=== PATIENT | male | born 1995 | race African-American/Black ===

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

== ENCOUNTER 2017-03-13 18:03 | Emergency (ER) | payer OTHER ==
[~2017-03-13] VITALS: Ht 170.2 cm; Wt 120.0 kg
[2017-03-13 18:06] VITALS: TEMP 37; Ht 170.2 cm; Wt 120.0 kg
[2017-03-13] MEDS ORDERED: IBUP-1428 PO (18:31)
[2017-03-13] MEDS ORDERED: TRAM-10 PO (18:50)
[2017-03-13 19:02] VITALS: BP 127/79; PULSE 65; O2SAT 100
--- NOTE | 2017-03-14 14:23 | EMERGENCY ROOM VISIT NOTE ---
ED Visit Note First contact with patient: 18:22 Chief Complaint: My bottom wisdom teeth hurt on the right. History of Present Illness: Mr. Yang is a 21-year-old black male who ambulates into the ED accompanied by family members complaining of right mandibular dental pain. Patient reports he has been having right mandibular dental pain in the area of his wisdom teeth for the last week. He reports his pain has been constant and has been controlled with [id number] ibuprofen and acetaminophen. He reports he was seen by a dentist today and was referred to an oral surgeon for wisdom teeth extraction. He reports approximately 5 hours ago he had an increase in his pain. He describes his discomfort as a constant throbbing sensation over tooth 31. He rates his discomfort 6/10. His pain is nonradiating. His pain worsens with palpation and chilling. He has not identified any alleviating factors related to the pain. He reports he took ibuprofen at the onset of his pain without relief of his discomfort. He denies any associated symptoms including fevers, chills, sweats, skin eruptions, skin color changes, recent dental trauma, facial swelling, upper respiratory tract symptoms, sore throats. Review of Systems: As noted above in history of present illness. Past Medical History: Patient denies. Current Medications: Patient denies. Allergies to Medications: Patient denies. Social History: Patient is currently employed; he feels safe in his home environment; he denies tobacco and alcohol use. Physical Examination: Vital Signs: Date Time Temp Pulse Resp B/P (MAP) Pulse Ox O2 Delivery O2 Flow Rate FiO2 03/13/17 19:02 65 16 127/79 100 03/13/17 18:06 37.0 61 16 138/83 100 Room Air GENERAL: 21-year-old male in mild distress due to pain, nontoxic-appearing, afebrile and hemodynamically stable. NEUROLOGICAL: Awake, alert and oriented to person, place and time. Answering questions appropriately and following commands. SKIN: Warm, dry and pink. No soft tissue eruptions or trauma noted. HEENT: Atraumatic and normocephalic. No facial swelling or tenderness. Oral cavity is moist and pink. Airway is patent. Speech is normal. Uvula was midline and no abscesses are seen. Posterior pharyngeal's not erythematous or edematous. No gross dental diseases were noted. He does have some wear and tear over the crown indicating possible grinding. Tooth #30 does not show any care cavities or decay. The tooth does appear to be impacted and there is gingiva growing over the crown of the tooth. There is no local gingiva erythema or edema. No signs of abscess around the tooth or surrounding mandible. No submandibular or cervical lymphadenopathy. ED Course: Patient is assessed as noted above. Patient's medication list was reviewed. Patient was educated about today's findings and instructed on his treatment plan ; he verbalizes understanding and agreement with this plan. Clinical Impression: Dental pain. Disposition: Patient discharged home in stable condition; prior to departure he was reassessed and subjectively reported he was pain-free. Plan: Comfort measures were discussed with the patient including alternating all tree and ibuprofen every 3 hours, covering the involved tooth with dental wax, using a liquid or mechanical soft diet. Patient was encouraged to follow-up with the oral surgeon for wisdom teeth extraction. Patient is encouraged return ED for worsening/uncontrolled pain, facial swelling , fevers or any new/concerning symptoms.
== END 2017-03-13 19:08 | disposition home or self-care (01) ==
LOC: C.EDB 18:04 → C.EDD 19:08
DX: K08.89 Other specified disorders of teeth and supporting structures (principal)

== ENCOUNTER 2017-06-24 08:50 | Emergency (ER) | payer OTHER ==
[~2017-06-24] VITALS: Ht 175.3 cm; Wt 131.0 kg
[~2017-06-24 08:50] MED LIST: IBUP-1428 PO
[2017-06-24 08:53] VITALS: TEMP 36.7; Ht 175.3 cm; Wt 131.0 kg
[2017-06-24] MEDS ORDERED: IBUPROFEN 800 MG TAB PO STA (09:17)
--- NOTE | 2017-06-24 10:40 | DIAGNOSTIC IMAGING REPORT ---
SCROTAL ULTRASOUND CLINICAL HISTORY: Left testicular pain. COMPARISON STUDY: None. TECHNIQUE: Grayscale and color and duplex Doppler sonography of the scrotum was performed. FINDINGS: The right testis measures 4.4 x 2.7 x 2.5 cm and the left testis measures 4.8 x 2.7 x 3.2 cm. There is color flow within each testis. There is no testicular mass. There is no evidence for epididymitis. IMPRESSION: 1. Normal sonographic appearance of the testes. No evidence of testicular torsion. No testicular mass. 2. No evidence for epididymitis. Electronically signed by: Kike Cordero M.D. 06/24/2017 10:39 AM Dictated Date/Time: 06/24/2017 10:36 AM
[2017-06-24] MEDS ORDERED: IBUP-1451 PO (10:57)
--- NOTE | 2017-06-24 10:59 | EMERGENCY ROOM VISIT NOTE ---
History First contact with patient: 09:06 Chief Complaint: TESTICULAR PAIN Stated Complaint: PAIN IN GROIN AREA Nursing Triage Summary: left testicle pain. pain started last night History of Present Illness The patient is a 21 year old male who presents to the Emergency Room with complaints of left-sided testicular pain which began last night. The patient states he was lying still, relaxing, when he began noticing the pain. He states that lying on his back did not seem to help with the pain, but he didn't is lying on his side seemed to help. This morning, he felt the pain was improving, but then it began worsening. He states he was able to lay with a pillow under his leg, which also helped with this discomfort. The patient states he did apply ice, which didn't seem to help as well. The patient was not participate in any activity when the symptoms began, however his girlfriend apparently often jumps on top of him, and this was occurring prior to the incident. The patient states positioning seems to improve or worsen the symptoms. He did take 400 mg ibuprofen last night, did not notice significant improvement. The patient describes the pain as a throbbing sensation, rated 3/ 10. He states with certain sitting positions, the pain does seem to shift towards the right side. He denies any masses or abnormal sensations of the testes or scrotum. He denies any fever, nausea, vomiting, abdominal pain, penile discharge or drainage, urinary symptoms. The patient is sexually active , and his last STD testing was performed approximately one and half years ago. The patient has only had one female partner in that time. Review of Systems A complete 10 point review of systems was reviewed with the patient with pertinent positives and negatives as per history of present illness. All else were negative. Past Medical/Surgical History Dislocated knee Social History Smoking Status: Never Smoker Alcohol Use: none Drug Use: none Marital Status: single Housing Status: lives with significant other Occupation Status: employed Current/Historical Medications Scheduled PRN Ibuprofen Tab (Motrin), 800 MG PO Q8H PRN for Pain Allergies None Physical Exam Vital Signs Date Time Temp Pulse Resp B/P (MAP) Pulse Ox O2 Delivery O2 Flow Rate FiO2 06/24/17 11:25 84 18 125/76 98 06/24/17 08:53 36.7 68 18 132/90 96 Room Air Physical Exam VITAL SIGNS - Vital signs and nursing notes were reviewed. GENERAL - 21-year-old Male appearing his stated age who is in no acute distress. Communicates well with provider and answers questions appropriately. ABDOMEN - Abdominal contour normal. Abdomen soft, without pulsations or visible masses. BS normoactive all four quadrants. No tenderness to palpation appreciated on light or deep palpation. No palpable masses, hepatosplenomegaly, or ascites noted. GENITOURINARY - No male penile lesions or adhesions. No urethral discharge. Mild testicular tenderness to palpation appreciated on the superior aspect of the left testicle. No palpable masses. No blue dot sign. No hernia noted on examination. PSYCH - A&Ox3 and cooperates fully with examiner. Pt is very pleasant and interacts well with examiner. Medical Decision & Procedures ER Provider Diagnostic Interpretation: SCROTAL ULTRASOUND CLINICAL HISTORY: Left testicular pain. COMPARISON STUDY: None. TECHNIQUE: Grayscale and color and duplex Doppler sonography of the scrotum was performed. FINDINGS: The right testis measures 4.4 x 2.7 x 2.5 cm and the left testis measures 4.8 x 2.7 x 3.2 cm. There is color flow within each testis. There is no testicular mass. There is no evidence for epididymitis. IMPRESSION: 1. Normal sonographic appearance of the testes. No evidence of testicular torsion. No testicular mass. 2. No evidence for epididymitis. Electronically signed by: Kike Cordero M.D. 06/24/2017 10:39 AM Dictated Date/Time: 06/24/2017 10:36 AM Urinalysis without signs of infection. Medications Administered Medications (Trade) Dose Ordered Sig/Navneet Route Start Time Stop Time Status Last Admin Dose Admin Ibuprofen (Motrin Tab) 800 mg NOW STAT PO 06/24/17 09:17 06/24/17 09:18 DC 06/24/17 09:52 800 MG ED Course The patient was seen and evaluated as above. He was given 800mg ibuprofen PO. Ultrasound ordered and obtained. This did not reveal any suspicious abnormal findings. Urinalysis was obtained. Urine dipstick did not reveal any signs of infection. Discharge instructions were reviewed, the patient was discharged home in good condition. Medical Decision This is a 21-year-old male patient who presents today complaining of left-sided testicular pain. The patient denies any lesions, masses, or other abnormalities. He states the pain began spontaneously, however he had been roughhousing with his girlfriend prior to the pain beginning. The patient states the pain improves with certain positions. He states it also worsens with other physicians, and palpation. The patient denies any previous history of anything similar. He denies any urinary symptoms. I do suspect this could be an early epididymitis versus muscular pain. The patient's pain does respond to high-dose anti-inflammatories. He will be started on scheduled anti- inflammatories and encouraged to follow up outpatient with his PCP. Differential diagnosis includes epididymitis, testicular torsion, abscess, hernia, sprain, strain, STD, urinary tract infection, malignancy, mass, and others Impression Primary Impression: Testicular pain, left Departure Information Dispostion Home / Self-Care Condition GOOD Prescriptions Ibuprofen Tab (MOTRIN) 800 Mg Tab 800 MG PO Q8H Y for Pain, #90 TAB For Initial Treatment Prov: Kristin Joseph PA-C 06/24/17 Referrals Rhina Montanez M.D. (PCP) Patient Instructions ED Epididymitis, ED Testicular Pain [facility] [place], [place], [facility] Additional Instructions Emergency department today for testicular pain. Ultrasound was negative for acute process. I discussed suspect an early epididymitis. As discussed, management and his anti-inflammatories at this time. Ibuprofen(Motrin, Advil) may be used for fever or pain. Use 800mg every eight hours as needed. Take with food. Avoid using more than 2400mg in a 24 hour period. Do not use 2400mg per day for more than three consecutive days without physician direction. Prolonged inappropriate use can lead to stomach upset or ulcers. (AND/OR) Acetaminophen(Tylenol) may be used for fever or pain. Use 1000mg every six hours as needed. Avoid using more than 3000mg in a 24 hour period. Follow-up with your primary care provider in 2-3 days for recheck. Return to the emergency department for any worsening symptoms including pain, swelling, masses, or other concerning symptoms.
[2017-06-24 11:25] VITALS: BP 125/76; PULSE 84; O2SAT 98
== END 2017-06-24 11:22 | disposition home or self-care (01) ==
LOC: C.EDB 08:52 → C.EDA 11:22
DX: N50.812 Left testicular pain (principal)

== ENCOUNTER 2018-12-16 18:12 | Inpatient (IN) ==
[2018-12-16] MEDS ORDERED: KETOROLAC 30 MG/ML VIAL IV STA (18:40)
[2018-12-16] MEDS ORDERED: SODIUM CHLORIDE 0.9% 1000ML 1,000 ML IV SCH (18:45)
--- NOTE | 2018-12-16 19:02 | XRay Report ---
XR chest 1V portable CLINICAL HISTORY: Atypical chest pain COMPARISON STUDY: No previous studies for comparison. FINDINGS: The cardiac and mediastinal contours are normal. There is no evidence of focal pulmonary co nsolidation. There is no evidence of failure. No pleural effusions are visualized.[Slight interstitia l prominence, likely relates to technical factors given the patient's body habitus. There is no pneum othorax. IMPRESSION: No active disease in the chest. Electronically signed by: David Wilkerson M.D. 12/16/2018 7:00 PM
[2018-12-16 19:11] LABS: Basophils # (auto) 0.01 K/uL (0-0.2); Basophils % (auto) 0.2 %; Eosinophils # (auto) 0.05 K/uL (0-0.5); Eosinophils % (auto) 0.8 %; Hematocrit (blood only) 47.8 % (42-52); Immature Granulocytes # (auto) 0.02 K/uL (0.00-0.02); Immature Granulocytes % (auto) 0.3 %; Lymphocytes # (auto) 1.83 K/uL (1.2-3.4); Lymphocytes % (auto) 28.6 %; Mean Corpuscular Hgb Conc 35.6 g/dL (32-36); Mean Corpuscular Volume 85.2 fL (80-100); Mean Platelet Volume 9.8 fL (7.4-10.4); Monocytes # (auto) 0.42 K/uL (0.11-0.59); Monocytes % (auto) 6.6 %; Neutrophils # (auto) 4.06 K/uL (1.4-6.5); Neutrophils % (auto) 63.5 %; Platelet Count 191 K/uL (130-400); RDW Coefficient of Variation 12.8 % (11.5-14.5); RDW Standard Deviation 39.9 fL (36.4-46.3); Red Blood Count 5.61 M/uL (4.7-6.1); White Blood Count 6.39 K/uL (4.8-10.8)
[2018-12-16 19:17] LABS: Albumin Level 3.9 gm/dl (3.4-5.0); BUN Creatinine Ratio 12.3 (10-20); Calcium 9.6 mg/dl (8.5-10.1); Creatinine Clr Calc Pharmacy 118.2 ml/min; Est GFR (African American) 88.7; Est GFR (Non-African American) 76.6; Potassium 4.2 mmol/L (3.5-5.1)
[2018-12-16 19:25] LABS: Albumin Globulin Ratio 0.9 (0.9-2); Bilirubin,Total 0.5 mg/dl (0.2-1); Globulin 4.5 gm/dl (2.5-4.0); Total Protein 8.4 gm/dl (6.4-8.2); Troponin I 1.02 ng/ml (0-0.045)
[2018-12-16] MEDS ORDERED: MoRPHine SULFATE 4 MG/ML 1 ML CARP\\VIAL IV STA (19:38)
[2018-12-16] MEDS ORDERED: OPTIRAY 320 125ml IV PRN (19:41)
--- NOTE | 2018-12-16 19:51 | CT Scan Report ---
CT ANGIOGRAM OF THE CHEST CLINICAL HISTORY: Atypical chest pain. Possible pulmonary embolism. COMPARISON STUDY: Chest x-ray dated 12/16/2018 TECHNIQUE: Following the IV administration of 117 mL of Optiray-320, CT angiogram of the thorax was p erformed from the thoracic inlet to the lung bases utilizing the pulmonary embolus protocol. Images a re reviewed in the axial, sagittal, and coronal planes. IV contrast was administered without complica tion. MIP imaging was performed. A dose lowering technique was utilized adhering to the principles o f ALARA. CT DOSE: 863.31 mGy.cm FINDINGS: No pathologically enlarged axillary mediastinal or hilar lymph nodes were visualized. There was no evidence of thoracic aortic dilatation. There are extensive bilateral pulmonary artery filling defects consistent with acute pulmonary emboli sm with a large thrombus burden. There is evidence for mild right ventricular strain. There is dilata tion of the main pulmonary artery. No pleural effusions are visualized. There was no evidence of focal pulmonary consolidation. IMPRESSION: 1. Extensive acute bilateral pulmonary embolism. There is evidence for mild right ventricular strain. There is mild dilatation of the main pulmonary artery Electronically signed by: David Wilkerson M.D. 12/16/2018 7:50 PM
[2018-12-16] MEDS ORDERED: HEPARIN 25000 UNIT/500 ML D5W IV ONE (20:09)
[2018-12-16] MEDS ORDERED: HEPARIN SOD (PORCINE) 1000 UNIT/ML 10 ML VIAL ONE (20:09)
--- NOTE | 2018-12-16 20:56 | Emergency Department Note ---
Entered by Rosemary Talamantes acting as a scribe for Oumar Sams MD History of Present Illness General Chief complaint: Illness Time Seen by Provider: 12/16/18 18:22 Source: patient History of Present Illness Onset (ago): hour(s) (3.5) Location: head and chest Pain Consistency: + other (sudden) Maximum Pain Intensity: 6 Quality: + other (illness) Relieved By: + medication Associated symptoms: + chest pain, + headaches, + shortness of breath and + ot her (lightheaded, dizzy); no cough, no fever/chills and no nausea/vomiting The patient is a 23 male w/ no PMHx who presents to the ED w/ CC of sudden illness starting 3.5 hours ago. The patient states that earlier today he was leaving [facility] with his family and had been riding in one of the carts as he recently tore his ACL. He reports that when he went to stand up to get in to the car he started feeling lightheaded and dizzy. He reports that he thought maybe his sugars were low so he ate something sweet. He reports that it offered some relief. The patient states that by the time he got home, he started to have a headache. He reports that he tried to help make dinner and while doing so, he got chest pain in the middle of his chest. He reports that he then became lightheaded again and decided to sit down, but it all his symptoms stayed He reports that the pains were a sharp pain He notes that he tried taking a medication and it helped alleviate some of his symptoms, but he cant remember what it was. He notes that it made him intermittently short of breath. The patient notes that he is a smoker and drinks one in a while. The patient denies nausea, vomiting, fevers, chills, cough, recent surgeries, a history of heart or lung disease, a history of blood clots, and recent long trips. Home Medications Home Medications Medication Instructions Recorded Confirmed Type fexofenadine-pseudoephedrine 60 tab PO QAM 12/02/18 12/16/18 History [Kayleen-D 12 Hour] fluticasone propionate [Flonase 2 spray INTRANASAL DAILY PRN 12/02/18 12/16/18 History Allergy Relief] diclofenac sodium 75 mg PO BID 12/16/18 12/16/18 History omeprazole 20 mg PO DAILY PRN 12/16/18 12/16/18 History tramadol 50 mg PO Q8H PRN 12/16/18 12/16/18 History Allergies Allergy/AdvReac Type Severity Reaction Status Date / Time No Known Allergies Allergy Verified 12/16/18 19:24 Past Med/Surg History Medical History Testicular swelling No pertinent family history Surgical History No pertinent past surgical history Family History Other No pertinent family history Social History Preferred Language: [place] Communication Ability: Effective Visual Impairment: No Limitations Hearing Ability: Normal marital status: Single Current Living Situation: Family current occupational status: employed Feels Safe at Home: Yes Smoking Status: Current every day smoker Review of Systems See HPI for pertinent positives & negatives. and A total of 10 systems reviewed and were otherwise negative Physical Exam Vital Signs Vital Signs - 24 hr 12/16/18 18:20 12/16/18 18:32 12/16/18 18:37 Temperature 37.1 C Temperature Source Oral Sepsis Recent Fever Within 48 Hours No Sepsis Action Taken by Nursing No Action Required Pulse Rate 120 H 118 H 117 H Pulse Rate from SpO2 Sensor Respiratory Rate 37 H 20 22 Respiratory Effort / Characteristics Non-Labored Respiratory Depth Normal Blood Pressure 128/81 128/81 Blood Pressure Mean 96 96 Pulse Oximetry 96 Oxygen Delivery Method Room Air 12/16/18 18:40 12/16/18 18:43 12/16/18 18:50 Temperature Temperature Source Sepsis Recent Fever Within 48 Hours Sepsis Action Taken by Nursing Pulse Rate 115 H 110 H Pulse Rate from SpO2 Sensor Respiratory Rate 22 28 H Respiratory Effort / Characteristics Respiratory Depth Blood Pressure Blood Pressure Mean Pulse Oximetry 96 Oxygen Delivery Method Room Air 12/16/18 19:00 12/16/18 19:05 12/16/18 19:10 Temperature Temperature Source Sepsis Recent Fever Within 48 Hours Sepsis Action Taken by Nursing Pulse Rate 114 H 112 H 116 H Pulse Rate from SpO2 Sensor 128 H 119 H Respiratory Rate 24 22 23 Respiratory Effort / Characteristics Respiratory Depth Blood Pressure 154/105 H 152/102 H Blood Pressure Mean 121 118 Pulse Oximetry 98 99 Oxygen Delivery Method 12/16/18 19:20 12/16/18 19:30 12/16/18 19:53 Temperature Temperature Source Sepsis Recent Fever Within 48 Hours Sepsis Action Taken by Nursing Pulse Rate 112 H 115 H Pulse Rate from SpO2 Sensor 217 H 227 H Respiratory Rate 27 H 24 Respiratory Effort / Characteristics Respiratory Depth Blood Pressure 139/96 Blood Pressure Mean 110 Pulse Oximetry 98 95 Oxygen Delivery Method 12/16/18 20:00 12/16/18 20:10 12/16/18 20:20 Temperature Temperature Source Sepsis Recent Fever Within 48 Hours Sepsis Action Taken by Nursing Pulse Rate 115 H 116 H 112 H Pulse Rate from SpO2 Sensor 116 H 113 H 113 H Respiratory Rate 25 H 26 H 21 Respiratory Effort / Characteristics Respiratory Depth Blood Pressure 146/96 H Blood Pressure Mean 112 Pulse Oximetry 97 95 96 Oxygen Delivery Method 12/16/18 20:30 12/16/18 20:40 Temperature Temperature Source Sepsis Recent Fever Within 48 Hours Sepsis Action Taken by Nursing Pulse Rate 109 H 112 H Pulse Rate from SpO2 Sensor 110 H 114 H Respiratory Rate 14 31 H Respiratory Effort / Characteristics Respiratory Depth Blood Pressure 124/100 Blood Pressure Mean 108 Pulse Oximetry 95 93 Oxygen Delivery Method GENERAL: Mildly uncomfortable appearing, well nourished, non-toxic. EYE EXAM: Normal conjunctiva. PERRL, no anisocoria and EOM's grossly intact w/o pain. OROPHARYNX: Moist mucous membranes. Grossly normal dentition. NECK: Supple, no nuchal rigidity, no adenopathy, non-tender. No signs of meningismus. LUNGS: Clear to auscultation. Normal chest wall mechanics. HEART: Tachycardic, no MRG. ABDOMEN: Abdomen soft, non-tender, normo-active bowel sounds, no masses, no rebound or guarding. BACK: No CVA TTP. SKIN: No rashes and no bruising. UPPER EXTREMITIES: Upper extremities are grossly normal. LOWER EXTREMITIES: Left lower extremity pain and swelling. Left knee is in a brace. NEURO EXAM: A&O x3, cranial nerves II-XII grossly intact, normal speech, moves all 4 extremities on command w/o issue. Course 1834: Past medical records reviewed. The patient was evaluated in room B11B. A complete history and physical exam was performed. 2009: I reevaluated the patient and updated him on his test results. I discussed the treatment plan with him. He verbally agrees and understands. 2016: I discussed the patient's case with Bravo Buckley PA-C- Database Marketing Manager. He is going to touch base with his attending. 2020: I discussed the patient's case with Bravo Buckley PA-C- Database Marketing Manager. Dr. Yuen is willing to keep the patient. 2028: I discussed the patient's case with Dr. Job Levine. He will evaluate the patient for further management. Consultations Consultation #1: I discussed the patient's case with Bravo Buckley PA-C- Database Marketing Manager. He is going to touch base with his attending. Time: 20:16 Consultation #2: I discussed the patient's case with Bravo Buckley PA-C- Database Marketing Manager. Dr. Yuen is willing to keep the patient. Time: 20:20 Consultation #3: I discussed the patient's case with Dr. Job Levine. He will evaluate the patient for further management. Time: 20:29 Administered Medications Ioversol (Optiray 320 125ml) 117 ml IV ONCE PRN PRN Reason: Interaction Checking Stop: 12/20/18 19:40 Last Admin: 12/16/18 19:42 Dose: 117 ml Documented by: [id number] Discontinued Medications Heparin Sodium (Porcine) (Heparin Iv Bolus) Confirm Administered Dose 10,000 units .ROUTE .STK-MED ONE Stop: 12/16/18 20:10 Last Admin: 12/16/18 20:14 Dose: 5,000 units Documented by: [id number] Cosigned by: [id number] Heparin Sodium/Dextrose () 1 ea IV NOW STA; Protocol Stop: 12/16/18 19:52 Last Admin: 12/16/18 20:14 Dose: Not Given Documented by: [id number] Heparin Sodium/Dextrose (Heparin Sodium/Dextrose) Confirm Administered Dose 25,000 units IV .STK-MED ONE Stop: 12/16/18 20:10 Last Admin: 12/16/18 20:13 Dose: 1,700 units Documented by: [id number] Cosigned by: [id number] Sodium Chloride (Nss 1000ml) 1,000 mls @ 999 mls/hr IV .Q1H1M [place] Stop: 12/16/18 19:45 Last Infusion: 12/16/18 19:49 Dose: 0 mls/hr Documented by: [id number] Admin: 12/16/18 18:48 Dose: 999 mls/hr Documented by: [id number] Ketorolac Tromethamine (Toradol) 30 mg IV NOW STA Stop: 12/16/18 18:41 Last Admin: 12/16/18 18:48 Dose: 30 mg Documented by: [id number] Morphine Sulfate (Morphine Sulfate) 4 mg IV NOW STA Stop: 12/16/18 19:39 Last Admin: 12/16/18 19:52 Dose: 4 mg Documented by: [id number] Medical Decision Making Medical Records Attestation: I reviewed the patient's medical records. Home Medications Current Medication List: was personally reviewed by me Laboratory Data Attestation: I reviewed the patient's lab results. Result diagrams: 12/16/18 18:25 12/16/18 18:25 Lab Results 12/16/18 12/16/18 Range/Units 18:25 18:25 WBC 6.39 (4.8-10.8) K/uL RBC 5.61 (4.7-6.1) M/uL Hgb 17.0 (14.0-18.0) g/dL Hct 47.8 (42-52) % MCV 85.2 (80-100) fL MCH 30.3 (25-34) pg MCHC 35.6 (32-36) g/dL RDW Std Deviation 39.9 (36.4-46.3) fL RDW Coeff of [place] 12.8 (11.5-14.5) % Plt Count 191 (130-400) K/uL MPV 9.8 (7.4-10.4) fL Immature Gran % (Auto) 0.3 % Neut % (Auto) 63.5 % Lymph % (Auto) 28.6 % [place] % (Auto) 6.6 % Eos % (Auto) 0.8 % Baso % (Auto) 0.2 % Immature Gran # (Auto) 0.02 (0.00-0.02) K/uL Neut # (Auto) 4.06 (1.4-6.5) K/uL Lymph # (Auto) 1.83 (1.2-3.4) K/uL [place] # (Auto) 0.42 (0.11-0.59) K/uL Eos # (Auto) 0.05 (0-0.5) K/uL Baso # (Auto) 0.01 (0-0.2) K/uL Sodium 139 (136-145) mmol/L Potassium 4.2 (3.5-5.1) mmol/L Chloride 104 (98-107) mmol/L Carbon Dioxide 28 (21-32) mmol/L Anion Gap 7.0 (3-11) BUN 16 (7-18) mg/dl Creatinine 1.32 (0.6-1.4) mg/dl Est Cr Clr Drug Dosing 118.2 ml/min Est GFR ( Amer) 88.7 Est GFR (Non-Af Amer) 76.6 BUN/Creatinine Ratio 12.3 (10-20) Glucose 96 (70-99) mg/dl Calcium 9.6 (8.5-10.1) mg/dl Total Bilirubin 0.5 (0.2-1) mg/dl AST 21 (15-37) U/L ALT 38 (12-78) U/L Alkaline Phosphatase 64 (45-117) U/L Troponin I 1.020 H* (0-0.045) ng/ml Total Protein 8.4 H (6.4-8.2) gm/dl Albumin 3.9 (3.4-5.0) gm/dl Globulin 4.5 H (2.5-4.0) gm/dl Albumin/Globulin Ratio 0.9 (0.9-2) Lipase 90 (73-393) U/L Imaging Data Radiologist's Impression: Radiology results as stated below per my review and the radiologist's interpretation: XR chest 1V portable CLINICAL HISTORY: Atypical chest pain COMPARISON STUDY: No previous studies for comparison. FINDINGS: The cardiac and mediastinal contours are normal. There is no evidence of focal pulmonary consolidation. There is no evidence of failure. No pleural effusions are visualized.[Slight interstitial prominence, likely relates to technical factors given the patient's body habitus. There is no pneumothorax. IMPRESSION: No active disease in the chest. Electronically signed by: David Wilkerson M.D. 12/16/2018 7:[address] ANGIOGRAM OF THE CHEST CLINICAL HISTORY: Atypical chest pain. Possible pulmonary embolism. COMPARISON STUDY: Chest x-ray dated 12/16/2018 TECHNIQUE: Following the IV administration of 117 mL of Optiray-320, CT angiogram of the thorax was performed from the thoracic inlet to the lung bases utilizing the pulmonary embolus protocol. Images are reviewed in the axial, sagittal, and coronal planes. IV contrast was administered without complication. MIP imaging was performed. A dose lowering technique was utilized adhering to the principles of ALARA. CT DOSE: 863.31 mGy.cm FINDINGS: No pathologically enlarged axillary mediastinal or hilar lymph nodes were visualized. There was no evidence of thoracic aortic dilatation. There are extensive bilateral pulmonary artery filling defects consistent with acute pulmonary embolism with a large thrombus burden. There is evidence for mild right ventricular strain. There is dilatation of the main pulmonary artery. No pleural effusions are visualized. There was no evidence of focal pulmonary consolidation. IMPRESSION: 1. Extensive acute bilateral pulmonary embolism. There is evidence for mild ri ght ventricular strain. There is mild dilatation of the main pulmonary artery Electronically signed by: David Wilkerson M.D. 12/16/2018 7:50 PM ECG Data Attestation: I personally reviewed and interpreted this ECG as follows: Indication: chest pain Rate (beats per minute): 118 Rhythm: sinus tachycardia Findings: + other (normal intervals, normal axis) and + T-wave inversion (lead V3, 3, aVL) Comparison ECG Date: no prior available Blood Pressure Blood Pressure Findings: Elevated blood pressure Blood Pressure Disposition: further management by hospitalist RODOLFO La The patient is a 23 male w/ no PMHx who presents to the ED w/ CC of sudden illness starting 3.5 hours ago. Differential diagnoses includes but is not limited to acute coronary syndrome, myocardial infarction, pericarditis, pulmonary embolus, aortic dissection, pneumonia, pneumothorax, musculoskeletal, shingles, esophageal. Patient was seen and evaluated the bedside. Patient did complain of acute onset of chest pains. The patient does note that it was sharp and stabbing in nature. Patient is tachycardic and does have some left lower extremity swelling. Patient of note did have a recent ACL tear and has been using a walker to help with ambulation. The patient did have blood work completed along with a CT angios of the chest. Patient's white count and hemoglobin are normal. The patient has normal kidney function. The patient did have an elevated troponin. Patient CT does show bilateral extensive PEs. Patient was started on a heparin bolus and drip. This would qualify as a submassive PE given the elevation in troponin and associated right heart strain seen on his EKG as well as on CT. I did speak with the on-call hospitalist. He will be a dmitted to the medicine service. I did speak with the on-call retail administrative assistant Bravo Buckley who did speak with the attending physician Dr. Yuen who stated the patient would be appropriate for staying in [facility] at this time. I did convey all the findings and the fact that the patient will be admitted to the patient and the family were at the bedside. Patient was admitted to the medicine service. Impression & Plan Bilateral pulmonary embolism, Encounter for smoking cessation counseling, Chest pain Critical Care Time Critical Care Time: Yes Total Critical Care Time: 75 I have personally spent 75 minutes of critical care time in the direct management of this patient. This includes bedside care, interpretation of d iagnostic studies, and testing, discussion with consultants, patient, and family members, and other required patient management activities. This 75 minutes is in excess of all separately billable procedures. Discharge Plan Visit Data Chief Complaint: Illness ED Provider: Oumar Sams Discharge Problem: Bilateral pulmonary embolism, Encounter for smoking cessation counseling, Chest pain Patient Disposition: Being Evaluated by Hospitalist Forms Stand Alone Forms: My [facility] Prescriptions Prescriptions: No Action fexofenadine-pseudoephedrine [Kayleen-D 12 Hour] 60-120 mg Tablet Extended Release 12 Hr 60 tab PO QAM RF: 0 fluticasone propionate [Flonase Allergy Relief] 50 mcg/actuation [place],Suspension 2 spray intranasal DAILY PRN (Reason: Allergy Symptoms) RF: 0 tramadol 50 mg tablet 50 mg PO Q8H PRN (Reason: Pain) RF: 0 omeprazole 20 mg capsule,delayed release(DR/EC) 20 mg PO DAILY PRN (Reason: Acid Reflux) RF: 0 diclofenac sodium 75 mg tablet,delayed release (DR/EC) 75 mg PO BID RF: 0 Referrals Referrals: Price Breaux MD [Primary Care Provider] - Discharge Problem: Chest pain Qualifiers: Chest pain type: unspecified Qualified Code(s): R07.9 - Chest pain, unspecified The scribe's documentation has been prepared under my direction and personally reviewed by me in its entirety. I confirm that the note above accurately reflects all work, treatment, procedures, and medical decision making performed by me.
--- NOTE | 2018-12-16 21:34 | History & Physical Report ---
Date of Service December 16, 2018 Assessment & Plan (1) Bilateral pulmonary embolism: This is a 23yo M with a PMH of obesity, sleep apnea and recent left knee injury who presents with shortness of breath and dizziness since this morning and was found to have bilateral PEs with evidence of mild right heart strain. -Tachycardia at 120 and tachypneic at 37 initially but has improved. O2 saturation of 97% on room air -Chest CTA with extensive acute bilateral pulmonary embolism. There is evidence for mild right ventricular strain. There is mild dilatation of the main pulmonary artery -ED physician discussed with ICU due to evidence of heart strain. Patient is stable with HR 105, RR of 21 and 97% on room air. Will place in PCU but transfer to ICU if develops respiratory distress -Started in IV heparin. 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 Plan to return home once medically stable. Patient seen in collaboration with Dr. Ford. Please see addendum. History of Present Illness Chief Complaint: SOB, dizziness Primary Care Provider: Price Breaux MD This is a 23yo M with a PMH of obesity, sleep apnea and recent left knee injury who presents with shortness of breath and dizziness since yesterday. 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 Was evaluated in ED that night but L knee XR was normal. Instructed to use crutches and follow up with ortho in clinic. Has been significantly less active since injury and has required crutches to ambulate. Was doing errands earlier today when he became more short of breath with associated dizziness and pleuritic chest pain. Family brought him to ED for further evaluation. In ED, patient was found to have tachycardia at 120 and tachypneic at 37. Troponin elevated at 1.020. Chest CTA with extensive acute bilateral pulmonary embolism. There is evidence for mild right ventricular strain. There is mild dilatation of the main pulmonary artery. Denies any personal history of blood clots. Does note that mom developed a blood clot following a knee injury a few years ago. Smokes 1/4 ppd, drinks occasionally. No recent trips or surgeries. No IV drug use. Still having pleuritic chest pain and palpitations. Oxygen saturation 93% on room air. No headache, wheezing, nausea, vomiting, abdominal pain, dysuria, diarrhea or constipation. Allergies Allergy/AdvReac Type Severity Reaction Status Date / Time No Known Allergies Allergy Verified 12/16/18 19:24 Home Medications Home Medications Medication Instructions Recorded Confirmed Type fexofenadine-pseudoephedrine 60 tab PO QAM 12/02/18 12/16/18 History [Kayleen-D 12 Hour] fluticasone propionate [Flonase 2 spray INTRANASAL DAILY PRN 12/02/18 12/16/18 History Allergy Relief] diclofenac sodium 75 mg PO BID 12/16/18 12/16/18 History omeprazole 20 mg PO DAILY PRN 12/16/18 12/16/18 History tramadol 50 mg PO Q8H PRN 12/16/18 12/16/18 History Past Med/Surg History Medical History Obesity (Chronic) AKSHAT (obstructive sleep apnea) (Chronic) Allergic rhinitis (Chronic) GERD (gastroesophageal reflux disease) (Chronic) Tobacco use (Chronic) No pertinent family history (Inactive) Surgical History No history of previous surgery (Chronic) Family History Other Asthma Deep vein thrombosis Social History Preferred Language: [place] Communication Ability: Effective Visual Impairment: No Limitations Hearing Ability: Normal marital status: Single Current Living Situation: Family current occupational status: employed Feels Safe at Home: Yes Smoking Status: Current every day smoker Cigarettes Per Day: 5-10 Hx Alcohol Use: Yes Alcohol Intake Frequency: Weekly Review of Systems Review of Systems: At least ten systems reviewed and negative except as noted in the HPI. Physical Exam Physical Exam: General Appearance: WD/WN, pbese male, no apparent distress, resting comfortably Head: normocephalic, atraumatic Eyes: normal inspection, PERRL, EOMI ENT: hearing grossly normal, pharynx normal Neck: supple, no JVD, no adenopathy Respiratory/Chest: lungs clear to auscultation. No wheezes, rales or rhonci. No respiratory distress or accessory muscle use Cardiovascular: tachycardic, regular rhythm, no murmur, normal peripheral pulses Abdomen/GI: normal bowel sounds, soft, non-tender to palpation Extremities/Musculoskelatal: Left knee brace. No calf tenderness, normal c apillary refill, no pedal edema Neurologic/Psych: alert, normal mood/affect, oriented x 3 Skin: normal color, warm/dry Results & Data Vital Signs (Past 12 Hours) Vital Signs Temp Pulse Resp BP Pulse Ox 12/16/18 20:40 112 H 31 H 93 12/16/18 20:30 109 H 14 124/100 95 12/16/18 20:20 112 H 21 96 12/16/18 20:10 116 H 26 H 95 12/16/18 20:00 115 H 25 H 146/96 H 97 12/16/18 19:53 115 H 24 95 12/16/18 19:30 139/96 12/16/18 19:20 112 H 27 H 98 12/16/18 19:10 116 H 23 99 12/16/18 19:05 112 H 22 152/102 H 98 12/16/18 19:00 114 H 24 154/105 H 12/16/18 18:50 110 H 28 H 12/16/18 18:43 96 12/16/18 18:40 115 H 22 12/16/18 18:37 117 H 22 12/16/18 18:32 37.1 C 118 H 20 128/81 96 12/16/18 18:20 120 H 37 H 128/81 Laboratory Results Short CBC 12/16/18 12/16/18 Range/Units 18:25 18:25 WBC 6.39 (4.8-10.8) K/uL RBC 5.61 (4.7-6.1) M/uL Hgb 17.0 (14.0-18.0) g/dL Hct 47.8 (42-52) % MCV 85.2 (80-100) fL MCH 30.3 (25-34) pg MCHC 35.6 (32-36) g/dL RDW Std Deviation 39.9 (36.4-46.3) fL RDW Coeff of Elizabeth 12.8 (11.5-14.5) % Plt Count 191 (130-400) K/uL MPV 9.8 (7.4-10.4) fL Immature Gran % (Auto) 0.3 % Neut % (Auto) 63.5 % Lymph % (Auto) 28.6 % [place] % (Auto) 6.6 % Eos % (Auto) 0.8 % Baso % (Auto) 0.2 % Immature Gran # (Auto) 0.02 (0.00-0.02) K/uL Neut # (Auto) 4.06 (1.4-6.5) K/uL Lymph # (Auto) 1.83 (1.2-3.4) K/uL [place] # (Auto) 0.42 (0.11-0.59) K/uL Eos # (Auto) 0.05 (0-0.5) K/uL Baso # (Auto) 0.01 (0-0.2) K/uL Sodium 139 (136-145) mmol/L Potassium 4.2 (3.5-5.1) mmol/L Chloride 104 (98-107) mmol/L Carbon Dioxide 28 (21-32) mmol/L Anion Gap 7.0 (3-11) BUN 16 (7-18) mg/dl Creatinine 1.32 (0.6-1.4) mg/dl Est Cr Clr Drug Dosing 118.2 ml/min Est GFR ( Amer) 88.7 Est GFR (Non-Af Amer) 76.6 BUN/Creatinine Ratio 12.3 (10-20) Glucose 96 (70-99) mg/dl Calcium 9.6 (8.5-10.1) mg/dl Total Bilirubin 0.5 (0.2-1) mg/dl AST 21 (15-37) U/L ALT 38 (12-78) U/L Alkaline Phosphatase 64 (45-117) U/L Troponin I 1.020 H* (0-0.045) ng/ml Total Protein 8.4 H (6.4-8.2) gm/dl Albumin 3.9 (3.4-5.0) gm/dl Globulin 4.5 H (2.5-4.0) gm/dl Albumin/Globulin Ratio 0.9 (0.9-2) Lipase 90 (73-393) U/L BMP 12/16/18 18:25 Sodium 139 Potassium 4.2 Chloride 104 Carbon Dioxide 28 BUN 16 Creatinine 1.32 Glucose 96 Calcium 9.6 Cardiac Enzymes 12/16/18 Range/Units 18:25 Troponin I 1.020 H* (0-0.045) ng/ml Liver Function 12/16/18 Range/Units 18:25 Total Bilirubin 0.5 (0.2-1) mg/dl AST 21 (15-37) U/L ALT 38 (12-78) U/L Alkaline Phosphatase 64 (45-117) U/L Albumin 3.9 (3.4-5.0) gm/dl Diagnostic Findings CXR: IMPRESSION: No active disease in the chest. Chest CTA: IMPRESSION: 1. Extensive acute bilateral pulmonary embolism. There is evidence for mild right ventricular strain. There is mild dilatation of the main pulmonary artery Supervising Physician Co-Signing Physician Notes Patient is a 23-year-old male with history of obesity, sleep apnea(recently evaluated as outpatient), GERD who recently had left knee injury resulting in limited mobility secondary to leg pain presents with history of shortness of breath, dizziness and pleuritic chest pain which started today. Patient has been using clutches to ambulate secondary to recent left knee injury. Denies any recent travel, IV drug use. Also denies any history of clotting, bleeding problems, calf pain. Apparently patient's mother had knee 2 years ago and was also diagnosed to have DVT at the time. CTA is suggestive of acute bilateral extensive pulmonary embolism with mild right heart strain. Currently is saturating well on room air. Was found to be tachycardic and tachypneic while in ED. Patient is started on IV heparin while in ED. On exam patient is obese, normocephalic, atraumatic, lungs are clear to auscultation, S1-S2, no murmur,+ tachycardia, abdomen soft nontender, no pedal edema, grossly no focal neurological deficits, left knee in brace. Is admitted to telemetry floor for management of acute PE. Continue IV heparin. Needs hypercoagulability work-up as outpatient. Mild troponin elevation likely secondary to right heart strain. We will continue to trend troponin. Will check echo. Will hold home diclofenac sodium while on IV heparin. I personally reviewed the record. Patient is interviewed and examined at bedside. Patient's care is coordinated with Jonna Gerber PA-C. Please refer to the documentation above for details of patient's presentation and for discussion of other issues. (1) Contusion of knee Encounter type: initial encounter Laterality: left Qualified Code(s): S80.02XA - Contusion of left knee, initial encounter
[2018-12-16 22:19] LABS: Prothrombin Time 10.3 Seconds (9.0-12.0)
[2018-12-16] MEDS ORDERED: FEXOFENADINE 60MG/PSEUDOEPHEDRINE 120MG TAB PO PRN (22:42)
[2018-12-16] MEDS ORDERED: ONDANSETRON INJ 2 MG/ML 2 ML VIAL IV PRN (22:42)
[2018-12-16] MEDS ORDERED: PANTOprazole 40 MG TAB PO PRN (22:42)
[2018-12-16] MEDS ORDERED: TRAMADOL HCL 50 MG TABLET PO PRN (22:42)
[2018-12-16] MEDS ORDERED: ACETAMINOPHEN 325 MG TAB PO PRN (22:42)
[2018-12-16] MEDS ORDERED: CONSULT PHARMACY STA (22:42)
[2018-12-16] MEDS ORDERED: FLUTICASONE PROPIONATE NA SPR 16 GM BTL NAE PRN (22:42)
[2018-12-16] MEDS ORDERED: POLYETHYLENE (MIRALAX) 17 GM PACK PO PRN (22:42)
[2018-12-16] MEDS ORDERED: Heparin IV Standard *NO* Bolus IV ONE (23:00)
[2018-12-16] MEDS: HEPARIN SODIUM/DEXTROSE 25,000 UNITS/500 ML BAG IV SCH (23:03)
[2018-12-17 02:28] LABS: Hematocrit (blood only) 44.4 % (42-52); Hemoglobin 15.7 g/dL (14.0-18.0); Mean Corpuscular Hgb Conc 35.4 g/dL (32-36); Mean Corpuscular Volume 84.7 fL (80-100); Mean Platelet Volume 9.5 fL (7.4-10.4); Platelet Count 171 K/uL (130-400); RDW Coefficient of Variation 12.9 % (11.5-14.5); RDW Standard Deviation 39.3 fL (36.4-46.3); Red Blood Count 5.24 M/uL (4.7-6.1)
[2018-12-17 02:46] LABS: Calcium 8.8 mg/dl (8.5-10.1); Est GFR (African American) 93.9
[2018-12-17 02:53] LABS: Partial Thromboplastin Time 54.8 Seconds (21.0-31.0)
--- NOTE | 2018-12-17 10:10 | Hospitalist Progress Note ---
Date of Service December 17, 2018 Assessment & Plan (1) Bilateral pulmonary embolism: Left popliteal vein DVT Main risk factor: Poor mobility secondary to left knee injury Remains hemodynamically stable Tachycardia improved 95% O2 saturation on room air Feels better overall compared to yesterday, no shortness of breath today Still has some mild chest pain Echocardiogram: EF 50 to 55% Grade 1 diastolic dysfunction next right ventricular cavity is enlarged, ventricular systolic function is reduced, there are regional wall motion abnormalities Akinesis of the RV free wall normal apical motion artery pressure of 36 mmHg Discussed case with assistant production editor Dr. 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 Grimm Last visit was Friday, recommend 2-week follow-up to determine possible surgery -Pain is about the same as per patient -Continue to monitor closely Nonweightbearing on the left leg -Tramadol PRN -PT OT evaluation (4) AKSHAT (obstructive sleep apnea): Evaluated for AKSHAT but has not been given results yet -Oxygen HS Smoking Cessation counseling DVT Ppx: IV heparin Code status: FULL PCP: Saeid Dispo: Admitted to telemetry. Plan to return home once medically stable. Case and plan of care discussed with patient in detail at length, he is comfortable and agreeable plan of care Subjective ff up acute pulmonary embolism Seen resting in bed, comfortable, not in distress, pleasant Speaks in sentences with no effort Reports central chest pain, sharp, constant, persistent, mild Denies active shortness of breath Has headache, dizziness No bleeding Left knee pain well controlled, no change since last week Reports left leg swelling is actually less today Denies other symptoms Review of Systems Review of Systems: All systems reviewed & are unremarkable except as noted in HPI & below Physical Exam Physical Exam: General- oriented x 3, not in distress, speaks in sentences with no effort or accessory muscle use Eyes- anicteric Neck- no JVD Lungs- clear breath sounds bilaterally, no rales/wheezes Heart- normal rate, regular rhythm; no murmurs Abdomen- normal bowel sounds, nondistended, soft, nontender Extremities- Left lower extremity: Mild knee swelling, mild left lower leg edema, no warmth/tendernesserythema Right lower extremity: Essentially normal Neuro- alert, oriented x 3; no gross focal neurologic deficits Skin- warm & dry Results & Data Vital Signs (Past 12 Hours) Vital Signs Temp Pulse Pulse Pulse Resp BP Pulse Ox 12/17/18 07:45 36.9 C 101 H 20 102/83 95 12/17/18 04:16 36.9 C 90 23 120/81 100 12/17/18 00:04 36.8 C 105 H 22 111/78 97 12/16/18 23:44 112 H 12/16/18 22:39 36.9 C 108 H 18 141/89 H 94 (1) Contusion of knee Encounter type: initial encounter Laterality: left Qualified Code(s): S80.02XA - Contusion of left knee, initial encounter
[2018-12-17] MEDS: HEPARIN SODIUM/DEXTROSE 25,000 UNITS/500 ML BAG IV SCH (11:25)
--- NOTE | 2018-12-17 12:45 | Pulmonary Consultation ---
Date of Consultation December 17, 2018 Assessment & Plan (1) Bilateral pulmonary embolism: bilateral pulmonary embolism. may be related to recent knee injury but would recommend further workup for hypercoagulable state as outpatient. treatment length may be difficult because if do not call the knee injury the inciting event may need lifetime treatment. for now would treat for minimum of 9 months and reevaluate continue heparin for now. can switch to DOAC tomorrow if stable. likely apixab an with obesity RV strain due to PE. he is HD stable. he will need repeat echo in 3 months to document resolution of RV strain smoking -discussed smoking cessation AKSHAT - continue outpatient workup and treatment if needed History of Present Illness Attending Physician: Ki Murillo MD History of Present Illness 23 y/o male with obesity and AKSHAT who presents with chest pain, shortness of breath, lightheadedness and dizzyness which started all of a sudden yesterday. 2 weeks ago he had a knee injury and therefore he has not been as mobile. He felt lightheaded and dizzy when he stood up then he started having chest pain. He says that he feels about the same since being in hospital. He has no history of clottig or bleeding disorders but his mother had DVT after knee injury. no long car rides or plane trips. He was found to have bilateral PE with RV strain and was started on heparin Allergies Allergy/AdvReac Type Severity Reaction Status Date / Time No Known Allergies Allergy Verified 12/16/18 19:24 Home Medications Home Medications Medication Instructions Recorded Confirmed Type fexofenadine-pseudoephedrine 60 tab PO QAM 12/02/18 12/16/18 History [Kayleen-D 12 Hour] fluticasone propionate [Flonase 2 spray INTRANASAL DAILY PRN 12/02/18 12/16/18 History Allergy Relief] diclofenac sodium 75 mg PO BID 12/16/18 12/16/18 History omeprazole 20 mg PO DAILY PRN 12/16/18 12/16/18 History tramadol 50 mg PO Q8H PRN 12/16/18 12/16/18 History Patient History Medical History Obesity (Chronic) AKSHAT (obstructive sleep apnea) (Chronic) Allergic rhinitis (Chronic) GERD (gastroesophageal reflux disease) (Chronic) Tobacco use (Chronic) No pertinent family history (Inactive) Surgical History No history of previous surgery (Chronic) Family History Other Asthma Deep vein thrombosis Social History Preferred Language: [place]i Communication Ability: Effective Visual Impairment: No Limitations Hearing Ability: Normal Beliefs That Will Affect Care: None marital status: Single Current Living Situation: Family Current Living Situation Comment: with [employer] current occupational status: employed Other Information That Helps Us Care for You: No Feels Safe at Home: Yes Safety Concerns: Feels Safe At This Time Smoking Status: Current every day smoker Tobacco Type: cigarettes Cigarettes Per Day: 3 Do You Dip or Chew Tobacco: No Second Hand Exposure: No Hx Alcohol Use: No Hx Substance Use: No Review of Systems 2 Review of Systems: Constitutional: no fevers no chills no weight loss Eyes: no blurry or double vision EENT: no sore throat, no congestion Respiratory: no cough + shortness of breath Cardiovascular: + chest pain no palpitations GI: no abdominal pain, no nausea, no vomiting, no diarrhea, no constipation Gu: no dysuria, no frequency MSK: no joint pain, no muscle aches Skin: no rash Neuro: no headache, + dizziness, no focal weakness Endocrine: no heat or cold intolerance heme: no easy bruising, no lymphadenopathy Psych: no depression, no anxiety Physical Exam Physical Exam: Constitutional: Comfortable NAD HEENT: normocephalic atraumatic. MMM. no cervical lymphadenopathy CV: RRR nl s1,s2 no murmurs rubs or gallops Lungs: clear to auscultation bilaterally. no accessory muscle use Abd: soft nontender nondistended. normal bowel sounds Ext: no edema. no cyanosis, no clubbing Skin: warm dry Neuro: alert and oriented. moving all extremities Psych: normal mood and affect Results & Data Vital Signs (Past 12 Hours) Vital Signs Temp Pulse Pulse Resp BP Pulse Ox 12/17/18 11:42 96 H 20 138/87 95 12/17/18 11:41 39.2 C H 12/17/18 10:17 92 H 12/17/18 07:45 36.9 C 101 H 20 102/83 95 12/17/18 04:16 36.9 C 90 23 120/81 100 Laboratory Results Laboratory Results - last 24 hr 12/16/18 12/16/18 12/16/18 18:25 18:25 18:25 WBC 6.39 RBC 5.61 Hgb 17.0 Hct 47.8 MCV 85.2 MCH 30.3 MCHC 35.6 RDW Std Deviation 39.9 RDW Coeff of Elizabeth 12.8 Plt Count 191 MPV 9.8 Immature Gran % (Auto) 0.3 Neut % (Auto) 63.5 Lymph % (Auto) 28.6 [place] % (Auto) 6.6 Eos % (Auto) 0.8 Baso % (Auto) 0.2 Immature Gran # (Auto) 0.02 Neut # (Auto) 4.06 Lymph # (Auto) 1.83 [place] # (Auto) 0.42 Eos # (Auto) 0.05 Baso # (Auto) 0.01 PT 10.3 INR 1.0 APTT PTT Ratio Sodium 139 Potassium 4.2 Chloride 104 Carbon Dioxide 28 Anion Gap 7.0 BUN 16 Creatinine 1.32 Est Cr Clr Drug Dosing 118.2 Est GFR ( Amer) 88.7 Est GFR (Non-Af Amer) 76.6 BUN/Creatinine Ratio 12.3 Glucose 96 Calcium 9.6 Total Bilirubin 0.5 AST 21 ALT 38 Alkaline Phosphatase 64 Troponin I 1.020 H* Total Protein 8.4 H Albumin 3.9 Globulin 4.5 H Albumin/Globulin Ratio 0.9 Lipase 90 12/17/18 12/17/18 12/17/18 00:39 02:11 02:11 WBC 8.80 RBC 5.24 Hgb 15.7 Hct 44.4 MCV 84.7 MCH 30.0 MCHC 35.4 RDW Std Deviation 39.3 RDW Coeff of Elizabeth 12.9 Plt Count 171 MPV 9.5 Immature Gran % (Auto) Neut % (Auto) Lymph % (Auto) [place] % (Auto) Eos % (Auto) Baso % (Auto) Immature Gran # (Auto) Neut # (Auto) Lymph # (Auto) [place] # (Auto) Eos # (Auto) Baso # (Auto) PT INR APTT 54.8 H* PTT Ratio 2.0 Sodium Potassium Chloride Carbon Dioxide Anion Gap BUN Creatinine Est Cr Clr Drug Dosing Est GFR ( Amer) Est GFR (Non-Af Amer) BUN/Creatinine Ratio Glucose Calcium Total Bilirubin AST ALT Alkaline Phosphatase Troponin I 0.803 H* Total Protein Albumin Globulin Albumin/Globulin Ratio Lipase 12/17/18 12/17/18 02:11 08:18 WBC RBC Hgb Hct MCV MCH MCHC RDW Std Deviation RDW Coeff of Elizabeth Plt Count MPV Immature Gran % (Auto) Neut % (Auto) Lymph % (Auto) [place] % (Auto) Eos % (Auto) Baso % (Auto) Immature Gran # (Auto) Neut # (Auto) Lymph # (Auto) [place] # (Auto) Eos # (Auto) Baso # (Auto) PT INR APTT PTT Ratio Sodium 139 Potassium 4.0 Chloride 107 Carbon Dioxide 24 Anion Gap 8.0 BUN 14 Creatinine 1.26 Est Cr Clr Drug Dosing 124.0 Est GFR ( Amer) 93.9 Est GFR (Non-Af Amer) 81.0 BUN/Creatinine Ratio 11.0 Glucose 110 H Calcium 8.8 Total Bilirubin AST ALT Alkaline Phosphatase Troponin I 0.400 H* Total Protein Albumin Globulin Albumin/Globulin Ratio Lipase Diagnostic Findings CT ANGIOGRAM OF THE CHEST CLINICAL HISTORY: Atypical chest pain. Possible pulmonary embolism. COMPARISON STUDY: Chest x-ray dated 12/16/2018 TECHNIQUE: Following the IV administration of 117 mL of Optiray-320, CT angiogram of the thorax was performed from the thoracic inlet to the lung bases utilizing the pulmonary embolus protocol. Images are reviewed in the axial, sagittal, and coronal planes. IV contrast was administered without complication. MIP imaging was performed. A dose lowering technique was utilized adhering to the principles of ALARA. CT DOSE: 863.31 mGy.cm FINDINGS: No pathologically enlarged axillary mediastinal or hilar lymph nodes were visualized. There was no evidence of thoracic aortic dilatation. There are extensive bilateral pulmonary artery filling defects consistent with acute pulmonary embolism with a large thrombus burden. There is evidence for mild right ventricular strain. There is dilatation of the main pulmonary artery. No pleural effusions are visualized. There was no evidence of focal pulmonary consolidation. IMPRESSION: 1. Extensive acute bilateral pulmonary embolism. There is evidence for mild right ventricular strain. There is mild dilatation of the main pulmonary artery Electronically signed by: David Wilkerson M.D. 12/16/2018 7:50 PM LEFT LOWER EXTREMITY VENOUS DOPPLER CLINICAL HISTORY: LEFT CALF PAIN, SWELLING COMPARISON STUDY: No previous studies for comparison. TECHNIQUE: Sonography of the deep venous system of the left lower extremity was performed. Compression and augmentation were evaluated. FINDINGS: The left common femoral, superficial femoral and popliteal veins were compressible. Augmentation was normal. Flow was shown within the deep calf vessels. IMPRESSION: No evidence of deep venous thrombus within the left lower extremity. Electronically signed by: Kike Cordero M.D. 12/11/2018 1:42 PM
--- NOTE | 2018-12-17 13:57 | Ultrasound Report ---
US venous doppler LE LT HISTORY: 23 years-old Male r/o dvt acute pain and swelling of the left lower extremity COMPARISON: Duplex venous Doppler study 12/11/2018 TECHNIQUE: Multiple real time sonographic images of the left lower extremity deep venous structures w ere obtained assessing grayscale appearance and color flow FINDINGS: Patent common femoral, profunda femoris and superficial femoral veins. Nonocclusive thrombus noted ab out the mid aspect of the popliteal vein, new from comparison. The deep veins of the calf appear sheffield nt and unremarkable. IMPRESSION: Nonocclusive deep venous thrombosis noted about the mid popliteal vein, new from 9. The above report was generated using voice recognition software. It may contain grammatical, syntax o r spelling errors. Electronically signed by: Elkin Loyola M.D. 12/17/2018 1:56 PM
[2018-12-18] MEDS: HEPARIN SODIUM/DEXTROSE 25,000 UNITS/500 ML BAG IV SCH ×2 (00:47→14:30)
[2018-12-18 07:21] LABS: Hematocrit (blood only) 44.3 % (42-52); Hemoglobin 15.6 g/dL (14.0-18.0); Mean Corpuscular Hgb Conc 35.2 g/dL (32-36); Mean Corpuscular Volume 84.4 fL (80-100); Mean Platelet Volume 9.6 fL (7.4-10.4); Platelet Count 152 K/uL (130-400); RDW Coefficient of Variation 12.6 % (11.5-14.5); RDW Standard Deviation 37.8 fL (36.4-46.3); Red Blood Count 5.25 M/uL (4.7-6.1); White Blood Count 6.65 K/uL (4.8-10.8)
[2018-12-18 07:54] LABS: BUN Creatinine Ratio 11.5 (10-20); Calcium 9.3 mg/dl (8.5-10.1); Creatinine Clr Calc Pharmacy 118.5 ml/min; Est GFR (African American) 86.4; Est GFR (Non-African American) 74.5; Potassium 4.4 mmol/L (3.5-5.1)
[2018-12-18 08:06] LABS: Partial Thromboplastin Time 54.1 Seconds (21.0-31.0)
[2018-12-18 12:14] LABS: INR 1.1 (0.9-1.1); Prothrombin Time 10.9 Seconds (9.0-12.0)
--- NOTE | 2018-12-18 12:43 | Pulmonology Progress Note ---
Date of Service December 18, 2018 Assessment & Plan (1) Bilateral pulmonary embolism: bilateral pulmonary embolism. may be related to recent knee injury but would recommend further workup for hypercoagulable state as outpatient. treatment length may be difficult because if do not call the knee injury the inciting event may need lifetime treatment. for now would treat for minimum of 9 months and reevaluate can switch to oral anticoagulation apixiban vs warfarin RV strain due to PE. echo with RV dysfunction. he is HD stable. I expect this to improve over time. he will need repeat echo in 3 months to document resolution of RV strain smoking - smoking cessation AKSHAT - continue outpatient workup and treatment if needed Subjective breathing better no sob or dizzyness with ambulation Physical Exam Physical Exam: Constitutional: Comfortable NAD HEENT: normocephalic atraumatic. MMM CV: RRR nl s1,s2 no murmurs rubs or gallops Lungs: clear to auscultation bilaterally. no accessory muscle use Abd: soft nontender nondistended. normal bowel sounds Ext: no edema. no cyanosis, no clubbing Skin: warm dry Neuro: alert and oriented. moving all extremities Psych: normal mood and affect Results & Data Vital Signs (Past 12 Hours) Vital Signs Temp Pulse Pulse Pulse Resp BP Pulse Ox 12/18/18 11:02 37.1 C 70 20 127/86 97 12/18/18 07:37 88 12/18/18 07:09 37.1 C 78 19 146/83 H 96 12/18/18 04:00 37.1 C 77 18 118/81 97 Laboratory Results Laboratory Results - last 24 hr 12/18/18 12/18/18 12/18/18 07:05 07:05 07:05 WBC 6.65 RBC 5.25 Hgb 15.6 Hct 44.3 MCV 84.4 MCH 29.7 MCHC 35.2 RDW Std Deviation 37.8 RDW Coeff of Elizabeth 12.6 Plt Count 152 MPV 9.6 PT INR APTT 54.1 H* PTT Ratio 2.0 Sodium 139 Potassium 4.4 Chloride 102 Carbon Dioxide 29 Anion Gap 8.0 BUN 16 Creatinine 1.35 Est Cr Clr Drug Dosing 118.5 Est GFR ( Amer) 86.4 Est GFR (Non-Af Amer) 74.5 BUN/Creatinine Ratio 11.5 Glucose 99 Calcium 9.3 12/18/18 07:05 WBC RBC Hgb Hct MCV MCH MCHC RDW Std Deviation RDW Coeff of Elizabeth Plt Count MPV PT 10.9 INR 1.1 APTT PTT Ratio Sodium Potassium Chloride Carbon Dioxide Anion Gap BUN Creatinine Est Cr Clr Drug Dosing Est GFR ( Amer) Est GFR (Non-Af Amer) BUN/Creatinine Ratio Glucose Calcium
[2018-12-18] MEDS ORDERED: WARFARIN SOD 5 MG TAB PO SCH (16:00)
--- NOTE | 2018-12-18 16:21 | Hospitalist Progress Note ---
Date of Service December 18, 2018 Assessment & Plan (1) Bilateral pulmonary embolism: Left popliteal vein DVT Main risk factor: Poor mobility secondary to left knee injury Echocardiogram: EF 50 to 55% Grade 1 diastolic dysfunction next right ventricular cavity is enlarged, ventricular systolic function is reduced, there are regional wall motion abnormalities Akinesis of the RV free wall normal apical motion artery pressure of 36 mmHg Discussed case with credit union manager Dr. 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 Grimm Last visit was Friday, recommend 2-week follow-up to determine possible surgery -No worsening of knee pain or leg pain, Pain well controlled at this point -Continue to monitor closely Nonweightbearing on the left leg -Tramadol PRN -PT OT evaluation (4) AKSHAT (obstructive sleep apnea): Evaluated for AKSHAT but has not been given results yet -Oxygen HS Smoking Cessation counseling DVT Ppx: IV heparin and Coumadin Code status: FULL PCP: Saeid Dispo: Admitted to telemetry. Plan to return home once medically stable. Case and plan of care discussed with patient in detail at length, he is comfortable and agreeable plan of care Subjective Follow-up for acute pulmonary embolism Seen resting in bed, comfortable, nondistressed Not on oxygen supplementation Pleasant, conversant States mid sternal chest pain is improving, breathing also improving Denies dizziness, palpitations Able to stand and ambulate to the bathroom with no problems No bleeding Denies other symptoms Review of Systems Review of Systems: All systems reviewed & are unremarkable except as noted in HPI & below Physical Exam Physical Exam: General- oriented x 3, not in distress, speaks in sentences with no effort or accessory muscle use Eyes- anicteric Neck- no JVD Lungs- clear breath sounds bilaterally, no crackles, no wheezing Heart- normal rate, regular rhythm; no murmurs Abdomen- normal bowel sounds, nondistended, soft, nontender Extremities- no pretibial edema, no calf tenderness Left knee: Mild edema, no warmth or tenderness,; also has mild edema on the left leg, but no erythema warmth or tenderness Neuro- alert, oriented x 3; no gross focal neurologic deficits Skin- warm & dry Results & Data Vital Signs (Past 12 Hours) Vital Signs Temp Pulse Pulse Resp BP Pulse Ox 12/18/18 15:28 37.0 C 71 19 130/84 97 12/18/18 15:06 77 12/18/18 11:02 37.1 C 70 20 127/86 97 12/18/18 07:37 88 12/18/18 07:09 37.1 C 78 19 146/83 H 96 Laboratory Results Laboratory Results - last 24 hr 12/18/18 12/18/18 12/18/18 07:05 07:05 07:05 WBC 6.65 RBC 5.25 Hgb 15.6 Hct 44.3 MCV 84.4 MCH 29.7 MCHC 35.2 RDW Std Deviation 37.8 RDW Coeff of Elizabeth 12.6 Plt Count 152 MPV 9.6 PT INR APTT 54.1 H* PTT Ratio 2.0 Sodium 139 Potassium 4.4 Chloride 102 Carbon Dioxide 29 Anion Gap 8.0 BUN 16 Creatinine 1.35 Est Cr Clr Drug Dosing 118.5 Est GFR ( Amer) 86.4 Est GFR (Non-Af Amer) 74.5 BUN/Creatinine Ratio 11.5 Glucose 99 Calcium 9.3 12/18/18 07:05 WBC RBC Hgb Hct MCV MCH MCHC RDW Std Deviation RDW Coeff of Elizabeth Plt Count MPV PT 10.9 INR 1.1 APTT PTT Ratio Sodium Potassium Chloride Carbon Dioxide Anion Gap BUN Creatinine Est Cr Clr Drug Dosing Est GFR ( Amer) Est GFR (Non-Af Amer) BUN/Creatinine Ratio Glucose Calcium (1) Contusion of knee Encounter type: initial encounter Laterality: left Qualified Code(s): S80.02XA - Contusion of left knee, initial encounter
[2018-12-19] MEDS: HEPARIN SODIUM/DEXTROSE 25,000 UNITS/500 ML BAG IV SCH ×2 (05:18→19:08)
[2018-12-19 06:55] LABS: Basophils # (auto) 0.02 K/uL (0-0.2); Basophils % (auto) 0.3 %; Eosinophils # (auto) 0.11 K/uL (0-0.5); Eosinophils % (auto) 1.8 %; Hematocrit (blood only) 44.7 % (42-52); Hemoglobin 15.9 g/dL (14.0-18.0); Immature Granulocytes # (auto) 0.03 K/uL (0.00-0.02); Immature Granulocytes % (auto) 0.5 %; Lymphocytes # (auto) 2.38 K/uL (1.2-3.4); Mean Corpuscular Hgb Conc 35.6 g/dL (32-36); Mean Corpuscular Volume 83.9 fL (80-100); Mean Platelet Volume 10.3 fL (7.4-10.4); Monocytes # (auto) 0.55 K/uL (0.11-0.59); Neutrophils # (auto) 3.01 K/uL (1.4-6.5); Neutrophils % (auto) 49.4 %; Platelet Count 152 K/uL (130-400); RDW Coefficient of Variation 12.5 % (11.5-14.5); RDW Standard Deviation 37.6 fL (36.4-46.3); Red Blood Count 5.33 M/uL (4.7-6.1)
[2018-12-19 07:09] LABS: Prothrombin Time 10.6 Seconds (9.0-12.0)
[2018-12-19 07:25] LABS: BUN Creatinine Ratio 10.4 (10-20); Calcium 9.3 mg/dl (8.5-10.1); Creatinine Clr Calc Pharmacy 128.2 ml/min; Est GFR (African American) 98.6; Est GFR (Non-African American) 85.1
[2018-12-19 08:23] LABS: Partial Thromboplastin Ratio 1.8
[2018-12-19] MEDS ORDERED: WARFARIN SOD 7.5 MG TAB PO SCH (16:00)
--- NOTE | 2018-12-19 17:09 | Hospitalist Progress Note ---
Date of Service December 19, 2018 Assessment & Plan (1) Bilateral pulmonary embolism: Left popliteal vein DVT Main risk factor: Poor mobility secondary to left knee injury Echocardiogram: EF 50 to 55% Grade 1 diastolic dysfunction next right ventricular cavity is enlarged, ventricular systolic function is reduced, there are regional wall motion abnormalities Akinesis of the RV free wall normal apical motion artery pressure of 36 mmHg Discussed case with artist relationship manager Dr. 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 Grimm Last visit was Friday, recommend 2-week follow-up to determine possible surgery -No worsening of knee pain or leg pain, Pain well controlled at this point -Continue to monitor closely Nonweightbearing on the left leg -Tramadol PRN -PT OT evaluation (4) AKSHAT (obstructive sleep apnea): Evaluated for AKSHAT but has not been given results yet -Oxygen HS Smoking Cessation counseling DVT Ppx: IV heparin and Coumadin Code status: FULL PCP: Saeid Dispo: Admitted to telemetry. Plan to return home once medically stable. Case and plan of care discussed with patient and his family at bedside in detail at length, they are comfortable and agreeable plan of care Subjective Follow-up for acute pulmonary embolism, DVT Seen with family at the bedside Resting in bed, comfortable, in good spirits States he actually feels much better today Chest pain resolved, pain continues to improve Denies hemoptysis or any other signs of bleeding Reports left leg swelling also significantly improved, pain level also improving No other symptoms Review of Systems Review of Systems: All systems reviewed & are unremarkable except as noted in HPI & below Physical Exam Physical Exam: General- oriented x 3, not in distress, speaks in sentences with no effort or accessory muscle use Eyes- anicteric Neck- no JVD Lungs- clear BS, no crackles, no wheezing bilaterally Heart- normal rate, regular rhythm; no murmurs Abdomen- normal bowel sounds, nondistended, soft, nontender Extremities- no pretibial edema, no calf tenderness Left lower extremity: Less edema, no tenderness/erythema/warmth Neuro- alert, oriented x 3; no gross focal neurologic deficits Skin- warm & dry Results & Data Vital Signs (Past 12 Hours) Vital Signs Temp Pulse Pulse Resp BP Pulse Ox 12/19/18 15:36 37.1 C 87 16 138/82 96 12/19/18 11:18 37.2 C 70 19 134/75 97 12/19/18 07:28 69 12/19/18 07:00 37.1 C 76 18 135/82 96 Laboratory Results Laboratory Results - last 24 hr 12/19/18 12/19/18 12/19/18 06:40 06:40 06:40 WBC 6.10 RBC 5.33 Hgb 15.9 Hct 44.7 MCV 83.9 MCH 29.8 MCHC 35.6 RDW Std Deviation 37.6 RDW Coeff of Elizabeth 12.5 Plt Count 152 MPV 10.3 Immature Gran % (Auto) 0.5 Neut % (Auto) 49.4 Lymph % (Auto) 39.0 [place] % (Auto) 9.0 Eos % (Auto) 1.8 Baso % (Auto) 0.3 Immature Gran # (Auto) 0.03 H Neut # (Auto) 3.01 Lymph # (Auto) 2.38 [place] # (Auto) 0.55 Eos # (Auto) 0.11 Baso # (Auto) 0.02 PT 10.6 INR 1.0 APTT PTT Ratio Sodium 135 L Potassium 4.0 Chloride 102 Carbon Dioxide 25 Anion Gap 8.0 BUN 13 Creatinine 1.21 Est Cr Clr Drug Dosing 128.2 Est GFR ( Amer) 98.6 Est GFR (Non-Af Amer) 85.1 BUN/Creatinine Ratio 10.4 Glucose 101 H Calcium 9.3 12/19/18 07:48 WBC RBC Hgb Hct MCV MCH MCHC RDW Std Deviation RDW Coeff of Elizabeth Plt Count MPV Immature Gran % (Auto) Neut % (Auto) Lymph % (Auto) [place] % (Auto) Eos % (Auto) Baso % (Auto) Immature Gran # (Auto) Neut # (Auto) Lymph # (Auto) [place] # (Auto) Eos # (Auto) Baso # (Auto) PT INR APTT 49.0 H* PTT Ratio 1.8 Sodium Potassium Chloride Carbon Dioxide Anion Gap BUN Creatinine Est Cr Clr Drug Dosing Est GFR ( Amer) Est GFR (Non-Af Amer) BUN/Creatinine Ratio Glucose Calcium (1) Contusion of knee Encounter type: initial encounter Laterality: left Qualified Code(s): S80.02XA - Contusion of left knee, initial encounter
[2018-12-20 05:45] LABS: Basophils # (auto) 0.03 K/uL (0-0.2); Basophils % (auto) 0.5 %; Eosinophils # (auto) 0.12 K/uL (0-0.5); Eosinophils % (auto) 1.8 %; Immature Granulocytes # (auto) 0.04 K/uL (0.00-0.02); Immature Granulocytes % (auto) 0.6 %; Lymphocytes # (auto) 2.31 K/uL (1.2-3.4); Lymphocytes % (auto) 34.9 %; Mean Corpuscular Hgb Conc 35.4 g/dL (32-36); Mean Platelet Volume 9.7 fL (7.4-10.4); Monocytes # (auto) 0.63 K/uL (0.11-0.59); Monocytes % (auto) 9.5 %; Neutrophils # (auto) 3.49 K/uL (1.4-6.5); Neutrophils % (auto) 52.7 %; Platelet Count 159 K/uL (130-400); RDW Coefficient of Variation 12.7 % (11.5-14.5); Red Blood Count 5.65 M/uL (4.7-6.1); White Blood Count 6.62 K/uL (4.8-10.8)
[2018-12-20 05:57] LABS: INR 1.1 (0.9-1.1); Prothrombin Time 11.2 Seconds (9.0-12.0)
[2018-12-20 06:09] LABS: Calcium 9.5 mg/dl (8.5-10.1); Creatinine Clr Calc Pharmacy 128.2 ml/min; Est GFR (African American) 98.6; Est GFR (Non-African American) 85.1
[2018-12-20 07:15] LABS: Partial Thromboplastin Ratio 1.8
[2018-12-20 07:18] LABS: Partial Thromboplastin Time 49.3 Seconds (21.0-31.0)
[2018-12-20] MEDS: HEPARIN SODIUM/DEXTROSE 25,000 UNITS/500 ML BAG IV SCH (10:07)
--- NOTE | 2018-12-20 16:16 | Hospitalist Progress Note ---
Date of Service December 20, 2018 Assessment & Plan (1) Bilateral pulmonary embolism: Left popliteal vein DVT Main risk factor: Poor mobility secondary to left knee injury Echocardiogram: EF 50 to 55% Grade 1 diastolic dysfunction next right ventricular cavity is enlarged, ventricular systolic function is reduced, there are regional wall motion abnormalities Akinesis of the RV free wall normal apical motion artery pressure of 36 mmHg Remains hemodynamically stable, on room air INR 1.1 Continue Coumadin, increase to 10 mg p.o., heparin bridge NOAC not recommended at this point secondary to patient's elevated BMI and body weight Will need INR to be therapeutic for at least 1 to 2 days prior to discharge (2) Elevated troponin: Troponin elevated at 1.020 in setting of acute bilateral PEs with heart strain Troponin decreased to 0.4 Echo noted per #1 EKG no signs of acute ischemia (3) Contusion of knee: 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 Grimm Last visit was Friday, recommend 2-week follow-up to determine possible surgery -No worsening of knee pain or leg pain, Pain well controlled at this point Nonweightbearing on the left leg -Tramadol PRN -PT OT evaluation -Patient scheduled to see orthopedic service this week, will consult orthopedic service (4) AKSHAT (obstructive sleep apnea): Evaluated for AKSHAT but has not been given results yet -Oxygen HS Smoking Cessation counseling DVT Ppx: IV heparin and Coumadin Code status: FULL PCP: Saeid Dispo: Admitted to telemetry. Plan to return home once medically stable. Case and plan of care discussed with patient and his family at bedside in detail at length, they are comfortable and agreeable plan of care Subjective Follow-up for acute pulmonary embolism Seen resting in bed, comfortable, watching TV In good spirits Reports that he continues to feel better Breathing continues to improve Chest pain resolved Left knee pain about the same, more on the medial side No other symptoms No bleeding Review of Systems Review of Systems: All systems reviewed & are unremarkable except as noted in HPI & below Physical Exam Physical Exam: General- oriented x 3, not in distress, speaks in sentences with no effort or accessory muscle use Eyes- anicteric Neck- no JVD Lungs- clear BS, no crackles, no wheezing bilaterally Heart- normal rate, regular rhythm; no murmurs Abdomen- normal bowel sounds, nondistended, soft, nontender Extremities- no pretibial edema, no calf tenderness Left knee: Mild edema, no warmth erythema or tenderness Neuro- alert, oriented x 3; no gross focal neurologic deficits Skin- warm & dry Results & Data Vital Signs (Past 12 Hours) Vital Signs Temp Pulse Pulse Resp BP Pulse Ox 12/20/18 15:07 37.0 C 81 18 136/83 98 12/20/18 11:08 37.0 C 88 18 140/91 98 12/20/18 09:25 70 12/20/18 08:26 36.9 C 66 18 127/81 97 Laboratory Results Laboratory Results - last 24 hr 12/20/18 12/20/18 12/20/18 05:31 05:31 05:31 WBC 6.62 RBC 5.65 Hgb 17.0 Hct 48.0 MCV 85.0 MCH 30.1 MCHC 35.4 RDW Std Deviation 39.0 RDW Coeff of Elizabeth 12.7 Plt Count 159 MPV 9.7 Immature Gran % (Auto) 0.6 Neut % (Auto) 52.7 Lymph % (Auto) 34.9 [place] % (Auto) 9.5 Eos % (Auto) 1.8 Baso % (Auto) 0.5 Immature Gran # (Auto) 0.04 H Neut # (Auto) 3.49 Lymph # (Auto) 2.31 [place] # (Auto) 0.63 H Eos # (Auto) 0.12 Baso # (Auto) 0.03 PT 11.2 INR 1.1 APTT PTT Ratio Sodium 135 L Potassium 4.0 Chloride 101 Carbon Dioxide 27 Anion Gap 7.0 BUN 12 Creatinine 1.21 Est Cr Clr Drug Dosing 128.2 Est GFR ( Amer) 98.6 Est GFR (Non-Af Amer) 85.1 BUN/Creatinine Ratio 10.0 Glucose 105 H Calcium 9.5 12/20/18 05:31 WBC RBC Hgb Hct MCV MCH MCHC RDW Std Deviation RDW Coeff of Elizabeth Plt Count MPV Immature Gran % (Auto) Neut % (Auto) Lymph % (Auto) [place] % (Auto) Eos % (Auto) Baso % (Auto) Immature Gran # (Auto) Neut # (Auto) Lymph # (Auto) [place] # (Auto) Eos # (Auto) Baso # (Auto) PT INR APTT 49.3 H* PTT Ratio 1.8 Sodium Potassium Chloride Carbon Dioxide Anion Gap BUN Creatinine Est Cr Clr Drug Dosing Est GFR ( Amer) Est GFR (Non-Af Amer) BUN/Creatinine Ratio Glucose Calcium (1) Contusion of knee Encounter type: initial encounter Laterality: left Qualified Code(s): S80.02XA - Contusion of left knee, initial encounter
[2018-12-20] MEDS: WARFARIN SOD 10 MG TAB PO SCH (16:31)
[2018-12-21] MEDS: HEPARIN SODIUM/DEXTROSE 25,000 UNITS/500 ML BAG IV SCH ×2 (00:21→15:04)
[2018-12-21 07:09] LABS: Basophils # (auto) 0.02 K/uL (0-0.2); Basophils % (auto) 0.3 %; Eosinophils % (auto) 1.7 %; Hematocrit (blood only) 46.6 % (42-52); Hemoglobin 16.3 g/dL (14.0-18.0); Immature Granulocytes # (auto) 0.05 K/uL (0.00-0.02); Immature Granulocytes % (auto) 0.8 %; Lymphocytes # (auto) 2.04 K/uL (1.2-3.4); Lymphocytes % (auto) 34.5 %; Mean Corpuscular Volume 83.2 fL (80-100); Mean Platelet Volume 10.2 fL (7.4-10.4); Monocytes # (auto) 0.46 K/uL (0.11-0.59); Monocytes % (auto) 7.8 %; Neutrophils # (auto) 3.24 K/uL (1.4-6.5); Neutrophils % (auto) 54.9 %; Platelet Count 163 K/uL (130-400); RDW Coefficient of Variation 12.7 % (11.5-14.5); RDW Standard Deviation 37.9 fL (36.4-46.3); White Blood Count 5.91 K/uL (4.8-10.8)
[2018-12-21 07:33] LABS: INR 1.3 (0.9-1.1); Prothrombin Time 12.7 Seconds (9.0-12.0)
[2018-12-21 07:37] LABS: BUN Creatinine Ratio 10.5 (10-20); Calcium 9.7 mg/dl (8.5-10.1); Creatinine Clr Calc Pharmacy 121.9 ml/min; Est GFR (Non-African American) 80.2; Partial Thromboplastin Time 53.1 Seconds (21.0-31.0); Potassium 4.4 mmol/L (3.5-5.1)
--- NOTE | 2018-12-21 10:23 | Hospitalist Progress Note ---
Date of Service December 21, 2018 Assessment & Plan (1) Bilateral pulmonary embolism: Left popliteal vein DVT Main risk factor: Poor mobility secondary to left knee injury Echocardiogram: EF 50 to 55% Grade 1 diastolic dysfunction next right ventricular cavity is enlarged, ventricular systolic function is reduced, there are regional wall motion abnormalities Akinesis of the RV free wall normal apical motion Pulmonary artery pressure of 36 mmHg Patient remained stable, symptoms continue to improve INR 1.3 Continue Coumadin 10 mg p.o., with heparin bridge NOAC not recommended at this point secondary to patient's elevated BMI and body weight Will need INR to be therapeutic for at least 1 to 2 days prior to discharge (2) Elevated troponin: Troponin elevated at 1.020 in setting of acute bilateral PEs with heart strain Troponin decreased to 0.4 Echo noted per #1 EKG no signs of acute ischemia (3) Contusion of knee: 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 Grimm Last visit was Friday, recommend 2-week follow-up to determine possible surgery -No worsening of knee pain or leg pain, Pain well controlled at this point Nonweightbearing on the left leg -Tramadol PRN -PT OT evaluation -Ortho service consulted, recommendations noted (4) AKSHAT (obstructive sleep apnea): Evaluated for AKSHAT but has not been given results yet -Oxygen HS Smoking Cessation counseling DVT Ppx: IV heparin and Coumadin Code status: FULL PCP: Saeid Dispo: Admitted to telemetry. Plan to return home once medically stable. Case and plan of care discussed with patient, he is comfortable and agreeable plan of care Subjective Follow-up for acute pulmonary embolism, left leg DVT Seen resting in bed, comfortable, no distress States he continues to feel better Dyspnea and chest pain have resolved Denies cough, hemoptysis No other signs of bleeding Left knee pain about the same No dizziness or shortness of breath when patient ambulates in the room No other symptoms today Review of Systems Review of Systems: All systems reviewed & are unremarkable except as noted in HPI & below Physical Exam Physical Exam: General- oriented x 3, not in distress, speaks in sentences with no effort or accessory muscle use Eyes- anicteric Neck- no JVD Lungs- clear BS, no crackles or wheezing bilaterally Heart- normal rate, regular rhythm; no murmurs Abdomen- normal bowel sounds, nondistended, soft, nontender Extremities- no pretibial edema, no calf tenderness Left knee-edema improving, no erythema/tenderness/ warmth Poor range of motion due to pain Neuro- alert, oriented x 3; no gross focal neurologic deficits Skin- warm & dry Results & Data Vital Signs (Past 12 Hours) Vital Signs Temp Pulse Resp BP Pulse Ox 12/21/18 07:47 37.3 C 89 20 125/88 92 12/21/18 04:00 37.0 C 75 19 122/81 97 12/20/18 23:48 37.2 C 87 17 122/85 97 (1) Contusion of knee Encounter type: initial encounter Laterality: left Qualified Code(s): S80.02XA - Contusion of left knee, initial encounter
[2018-12-21] MEDS: WARFARIN SOD 10 MG TAB PO SCH (15:06)
--- NOTE | 2018-12-21 15:35 | Consultation Report ---
DATE OF CONSULTATION: 12/21/2018 CHIEF COMPLAINT: Left knee pain and reason for the orthopedic consultation. HISTORY OF PRESENT ILLNESS: The patient is a delightful boy. He is 23 years of age, established with our practice. He had an injury to his left lower extremity on 12/02/2018, was seen in the office, evaluated and treated including an MRI scan which documented an ACL injury to the left knee. Subsequent to this, he was in town last week on Friday, became short of breath, had some confusion, lightheadedness at home. 911 was summoned. He was brought via emergency transportation to the Emergency Room [facility]. He was determined to have bilateral pulmonary emboli with mild right heart strain at the time of admission. He was admitted to medical management. We were consulted. PAST MEDICAL HISTORY: Positive for sleep apnea, contusion of his knee, an ACL tear, elevated troponin, tachycardia, bilateral pulmonary emboli with this admission. He also has GERD and also has tobacco use chronic. ALLERGIES: Negative. HOME MEDICATIONS: Listed on the inquiry. PAST SURGICAL HISTORY: No prior surgeries. OBJECTIVE: GENERAL: He is alert, oriented. He is pleasant and communicates perfectly. VITAL SIGNS: Pulse 100, respiration is 20. EXTREMITIES: Specific in regard to his left knee, there is some pain with flexion and extension. There is mild warmth, mild edema. No gross instability. IMAGES: MRI scan demonstrated an ACL rupture. IMPRESSION: Delightful young taya, 23 years of age with an anterior cruciate ligament tear, bilateral pulmonary emboli, early right heart strain, tobacco use and morbid obesity. PLAN: He needs medical management for his PE that is obvious. Surgery for his left knee can be done at any time in the future. There is nothing urgent. His obesity needs to be taken very seriously. We will follow really with him as an outpatient. He can be discharged from our standpoint at any time.
[2018-12-22] MEDS: HEPARIN SODIUM/DEXTROSE 25,000 UNITS/500 ML BAG IV SCH ×2 (04:50→19:21)
[2018-12-22 04:54] LABS: Basophils # (auto) 0.02 K/uL (0-0.2); Basophils % (auto) 0.3 %; Eosinophils # (auto) 0.16 K/uL (0-0.5); Eosinophils % (auto) 2.5 %; Hematocrit (blood only) 45.6 % (42-52); Hemoglobin 16.2 g/dL (14.0-18.0); Immature Granulocytes # (auto) 0.06 K/uL (0.00-0.02); Immature Granulocytes % (auto) 0.9 %; Lymphocytes # (auto) 2.13 K/uL (1.2-3.4); Mean Corpuscular Hgb Conc 35.5 g/dL (32-36); Mean Corpuscular Volume 85.2 fL (80-100); Mean Platelet Volume 9.8 fL (7.4-10.4); Monocytes # (auto) 0.55 K/uL (0.11-0.59); Monocytes % (auto) 8.5 %; Neutrophils # (auto) 3.54 K/uL (1.4-6.5); Neutrophils % (auto) 54.8 %; Platelet Count 159 K/uL (130-400); RDW Coefficient of Variation 12.8 % (11.5-14.5); RDW Standard Deviation 39.4 fL (36.4-46.3); Red Blood Count 5.35 M/uL (4.7-6.1); White Blood Count 6.46 K/uL (4.8-10.8)
[2018-12-22 05:14] LABS: BUN Creatinine Ratio 11.8 (10-20); Calcium 9.3 mg/dl (8.5-10.1); Creatinine Clr Calc Pharmacy 127.9 ml/min; Est GFR (African American) 98.6; Est GFR (Non-African American) 85.1; Potassium 3.7 mmol/L (3.5-5.1)
[2018-12-22 05:17] LABS: INR 1.5 (0.9-1.1); Partial Thromboplastin Ratio 2.4; Prothrombin Time 15.3 Seconds (9.0-12.0)
[2018-12-22 05:39] LABS: Partial Thromboplastin Time 65.5 Seconds (21.0-31.0)
--- NOTE | 2018-12-22 13:00 | Hospitalist Progress Note ---
Date of Service December 22, 2018 Assessment & Plan (1) Bilateral pulmonary embolism: Left popliteal vein DVT Main risk factor: Poor mobility secondary to left knee injury Echocardiogram: EF 50 to 55% Grade 1 diastolic dysfunction next right ventricular cavity is enlarged, ventricular systolic function is reduced, there are regional wall motion abnormalities Akinesis of the RV free wall normal apical motion Pulmonary artery pressure of 36 mmHg Patient remained stable, symptoms continue to improve INR gradually improving, today 1.5 We will increase Coumadin to 12.5 mg p.o. 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 Grimm Last visit was Friday, recommend 2-week follow-up to determine possible surgery -No worsening of knee pain or leg pain, Pain well controlled at this point Nonweightbearing on the left leg -Tramadol PRN -PT OT evaluation -Ortho service consulted,Recommend to continue conservative management for now, follow-up with orthopedic surgeon Dr. Grimm as an outpatient (4) AKSHAT (obstructive sleep apnea): Evaluated for AKSHAT but has not been given results yet -Oxygen HS Smoking Cessation counseling DVT Ppx: IV heparin and Coumadin Code status: FULL PCP: Saeid Dispo: Anticipate discharge to home when medically stable, INR therapeutic x2 days ; follow-up with PCP and with Coumadin clinic Subjective Follow-up for acute pulmonary embolism Seen sitting up in bedside chair, comfortable, no distress States breathing continues to improve, no coughing, chest pain No signs of bleeding No other symptoms today Review of Systems Review of Systems: All systems reviewed & are unremarkable except as noted in HPI & below Physical Exam Physical Exam: General- oriented x 3, not in distress, speaks in sentences with no effort or accessory muscle use Eyes- anicteric Neck- no JVD Lungs- clear Auscultation bilaterally, no crackles, no wheezing noted Heart- normal rate, regular rhythm; no murmurs Abdomen- normal bowel sounds, nondistended, soft, nontender Extremities- no pretibial edema, no calf tenderness Left knee-edema continues to improve, no tenderness, no warmth Neuro- alert, oriented x 3; no gross focal neurologic deficits Skin- warm & dry Results & Data Vital Signs (Past 12 Hours) Vital Signs Temp Pulse Resp BP Pulse Ox 12/22/18 11:28 36.6 C 81 18 116/81 98 12/22/18 07:16 36.7 C 74 18 136/80 98 12/22/18 03:28 36.7 C 84 18 128/86 98 Laboratory Results Laboratory Results - last 24 hr 12/22/18 12/22/18 12/22/18 04:36 04:36 04:36 WBC 6.46 RBC 5.35 Hgb 16.2 Hct 45.6 MCV 85.2 MCH 30.3 MCHC 35.5 RDW Std Deviation 39.4 RDW Coeff of Elizabeth 12.8 Plt Count 159 MPV 9.8 Immature Gran % (Auto) 0.9 Neut % (Auto) 54.8 Lymph % (Auto) 33.0 [place] % (Auto) 8.5 Eos % (Auto) 2.5 Baso % (Auto) 0.3 Immature Gran # (Auto) 0.06 H Neut # (Auto) 3.54 Lymph # (Auto) 2.13 [place] # (Auto) 0.55 Eos # (Auto) 0.16 Baso # (Auto) 0.02 PT 15.3 H INR 1.5 H APTT 65.5 H* PTT Ratio 2.4 Sodium 136 Potassium 3.7 D Chloride 101 Carbon Dioxide 27 Anion Gap 8.0 BUN 14 Creatinine 1.21 Est Cr Clr Drug Dosing 127.9 Est GFR ( Amer) 98.6 Est GFR (Non-Af Amer) 85.1 BUN/Creatinine Ratio 11.8 Glucose 135 H Calcium 9.3 (1) Contusion of knee Encounter type: initial encounter Laterality: left Qualified Code(s): S80.02XA - Contusion of left knee, initial encounter
[2018-12-22] MEDS: WARFARIN SOD 2.5 MG TAB PO SCH (15:42)
[2018-12-22] MEDS: WARFARIN SOD 10 MG TAB PO SCH (15:42)
[2018-12-23 05:04] LABS: Basophils # (auto) 0.03 K/uL (0-0.2); Basophils % (auto) 0.5 %; Eosinophils # (auto) 0.14 K/uL (0-0.5); Eosinophils % (auto) 2.2 %; Hematocrit (blood only) 45.3 % (42-52); Hemoglobin 15.8 g/dL (14.0-18.0); Immature Granulocytes # (auto) 0.04 K/uL (0.00-0.02); Immature Granulocytes % (auto) 0.6 %; Lymphocytes # (auto) 2.21 K/uL (1.2-3.4); Lymphocytes % (auto) 34.4 %; Mean Corpuscular Hgb Conc 34.9 g/dL (32-36); Mean Corpuscular Volume 84.5 fL (80-100); Mean Platelet Volume 9.9 fL (7.4-10.4); Monocytes # (auto) 0.64 K/uL (0.11-0.59); Neutrophils # (auto) 3.36 K/uL (1.4-6.5); Neutrophils % (auto) 52.3 %; Platelet Count 169 K/uL (130-400); RDW Coefficient of Variation 12.7 % (11.5-14.5); RDW Standard Deviation 38.9 fL (36.4-46.3); Red Blood Count 5.36 M/uL (4.7-6.1); White Blood Count 6.42 K/uL (4.8-10.8)
[2018-12-23 05:28] LABS: BUN Creatinine Ratio 11.9 (10-20); Calcium 9.2 mg/dl (8.5-10.1); Creatinine Clr Calc Pharmacy 124.8 ml/min; Est GFR (African American) 95.7; Est GFR (Non-African American) 82.6; Partial Thromboplastin Ratio 3.1; Potassium 3.9 mmol/L (3.5-5.1); Prothrombin Time 19.6 Seconds (9.0-12.0)
[2018-12-23 05:49] LABS: Partial Thromboplastin Time 84.8 Seconds (21.0-31.0)
[2018-12-23] MEDS: HEPARIN SODIUM/DEXTROSE 25,000 UNITS/500 ML BAG IV SCH (11:49)
[2018-12-23 13:06] LABS: Partial Thromboplastin Ratio 2.1; Partial Thromboplastin Time 57.2 Seconds (21.0-31.0)
[2018-12-23] MEDS: WARFARIN SOD 2.5 MG TAB PO SCH (15:59)
[2018-12-23] MEDS: WARFARIN SOD 10 MG TAB PO SCH (15:59)
--- NOTE | 2018-12-23 17:35 | Hospitalist Progress Note ---
Date of Service December 23, 2018 Assessment & Plan (1) Bilateral pulmonary embolism: Acute pulmonary embolism with core pulmonale Left popliteal vein DVT -Main risk factor: Poor mobility secondary to left knee injury -patient was started on heparin drip and coumadin (NOAC not recommended at this point secondary to patient's elevated BMI and body weight) -as of 12/23/18 while on heparin drip and coumadin 12.5 mg, patient's INR is 2 which is the first therapeutic INR -will continue heparin drip and coumadin 12.5 mg for now and if INR remains therapeutic between 2 to 3 by 12/24/18 then may consider hospital discharge (2) Elevated troponin: Troponin elevated at 1.020 in setting of acute bilateral PEs with heart strain Troponin decreased to 0.4 Echocardiogram: EF 50 to 55% Grade 1 diastolic dysfunction, right ventricular cavity is enlarged, ventricular systolic function is reduced, there are regional wall motion abnormalities Akinesis of the RV free wall normal apical motion Pulmonary artery pressure of 36 mmHg EKG no signs of acute ischemia (3) Contusion of knee: 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 Grimm -No worsening of knee pain or leg pain, Pain well controlled at this point Nonweightbearing on the left leg -Tramadol PRN -PT OT evaluation while inpatient -Ortho service consulted,Recommend to continue conservative management for now, follow-up with orthopedic surgeon Dr. Grimm as an outpatient -patient will need to follow as outpatient primary care doctor on weight loss strategies (4) AKSHAT (obstructive sleep apnea): Evaluated for AKSHAT but has not been given results yet -Oxygen HS Smoking Cessation counseling Subjective Patient denies acute pain. breathing on room air. no shortness of breath. denies problems with bowel movements or urination. no lightheadedness. no dizziness Physical Exam Constitutional: + obese Eyes: PERRL, conjunctivae normal, anicteric sclerae EOM intact bilaterally ENMT: external ear and nose normal, oropharynx normal Neck: trachea midline, no thyromegaly normal visual inspection Respiratory: normal respiratory effort, lungs clear to auscultation Cardiovascular: RRR, no murmur, no edema Gastrointestinal (Abdomen): normal bowel sounds, soft, nontender, no hepatosplenomegaly Musculoskeletal: Head/Neck/Chest: normocephalic and head atraumatic Neurologic: PERRL, EOMI, accommodation nl, no face palsy, no dysarthria CN's II-XI intact bilaterally Psychiatric: A+Ox3, euthymic affect Results & Data Vital Signs (Past 12 Hours) Vital Signs Temp Pulse Pulse Resp BP Pulse Ox 12/23/18 16:00 36.8 C 83 20 137/85 96 12/23/18 15:51 76 12/23/18 11:37 37 C 78 18 127/89 98 12/23/18 07:24 36.8 C 72 16 136/76 98 (1) Contusion of knee Encounter type: initial encounter Laterality: left Qualified Code(s): S80.02XA - Contusion of left knee, initial encounter
[2018-12-24 00:05] VITALS: O2SAT 98
[2018-12-24] MEDS: HEPARIN SODIUM/DEXTROSE 25,000 UNITS/500 ML BAG IV SCH (03:41)
[2018-12-24 03:48] VITALS: TEMP 98.1
[2018-12-24 06:26] LABS: Basophils # (auto) 0.03 K/uL (0-0.2); Basophils % (auto) 0.5 %; Eosinophils # (auto) 0.14 K/uL (0-0.5); Eosinophils % (auto) 2.1 %; Hemoglobin 15.6 g/dL (14.0-18.0); Immature Granulocytes # (auto) 0.05 K/uL (0.00-0.02); Immature Granulocytes % (auto) 0.8 %; Lymphocytes # (auto) 2.48 K/uL (1.2-3.4); Lymphocytes % (auto) 37.5 %; Mean Corpuscular Hgb Conc 34.7 g/dL (32-36); Mean Corpuscular Volume 84.1 fL (80-100); Mean Platelet Volume 9.8 fL (7.4-10.4); Monocytes % (auto) 9.1 %; Neutrophils # (auto) 3.32 K/uL (1.4-6.5); Platelet Count 152 K/uL (130-400); RDW Coefficient of Variation 12.6 % (11.5-14.5); RDW Standard Deviation 38.2 fL (36.4-46.3); Red Blood Count 5.35 M/uL (4.7-6.1); White Blood Count 6.62 K/uL (4.8-10.8)
[2018-12-24 06:45] LABS: INR 2.5 (0.9-1.1); Partial Thromboplastin Ratio 2.6; Prothrombin Time 23.7 Seconds (9.0-12.0)
[2018-12-24 06:53] LABS: Partial Thromboplastin Time 69.3 Seconds (21.0-31.0)
[2018-12-24 07:26] VITALS: BP 119/84
--- NOTE | 2018-12-24 09:23 | Hospitalist Progress Note ---
Date of Service December 24, 2018 Assessment & Plan (1) Bilateral pulmonary embolism: Acute pulmonary embolism with core pulmonale Deep Vein Thrombosis of Left popliteal vein Anticoagulated by anticoagulation therapy -Main risk factor: Poor mobility secondary to left knee injury -patient was started on heparin drip and coumadin (NOAC not recommended at this point secondary to patient's elevated BMI and body weight) -was started on coumadin 7.5 mg on 12/19/18 with IV heparin, then coumadin dosed as 10 mg daily with IV heparin from 12/20/18, then 12.5 mg daily with IV heparin from 12/22/18 with 1st therapeutic INR a 2 on 12/23/18 AM and then 2nd therapeutic INR as 2.5 on 12/24/18 AM. stopped heparin IV on 12/24/18 and discharge on coumadin 10 mg daily -Patient to be discharged on coumadin (warfarin) 10 mg daily Prescription sent electronically to [facility] [address] [place] [address] -Patient should follow up with primary care doctor to get INR level checked (goal level is INR between 2 to 3) 12/29/2018 11:00 AM Provider Danyelle Zendejas, Department 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 Grimm -No worsening of knee pain or leg pain, -Pain well controlled at this point -Patient has follow up to see orthopedic clinic for left knee contusion. Patient should minimize excessive weight on left knee -patient will need to follow as outpatient primary care doctor on weight loss strategies (4) AKSHAT (obstructive sleep apnea): Evaluated for AKSHAT but has not been given results yet -nocturnal oxygen not used during hospital days - no acute respiratory issues at this time. breathing on room air -AKSHAT (obstructive sleep apnea) evaluations as outpatient 02/18/2019 2:20 PM Provider Nelda Hair MD Department Sleep Disorders, [facility] Smoking Cessation counseling Discharge Diagnosis Acute pulmonary embolism with core pulmonale; Deep Vein Thrombosis of Left popliteal vein; elevated troponin from pulmonary embolism, Anticoagulated by anticoagulation therapy; Contusion of left knee; Obesity; AKSHAT (obstructive sleep apnea) Patient to be discharged on coumadin (warfarin) 10 mg daily Prescription sent electronically to [facility] [address] [place] [address] Patient should follow up with primary care doctor to get INR level checked (goal level is INR between 2 to 3) 12/29/2018 11:00 AM Provider Danyelle Zendejas DO [facility] (was started on coumadin 7.5 mg on 12/19/18 with IV heparin, then coumadin dosed as 10 mg daily with IV heparin from 12/20/18, then 12.5 mg daily with IV heparin from 12/22/18 with 1st therapeutic INR a 2 on 12/23/18 AM and then 2nd therapeutic INR as 2.5 on 12/24/18 AM. stopped heparin IV on 12/24/18 and discharge on coumadin 10 mg daily ) [facility] appointment line also notified of scheduling patient to follow with coumadin clinic to monitor INR levels regularly while taking coumadin, patient should avoid NSAIDs (nonsteroidal antiinflammatory drugs) such as diclofenac (Voltaren), ibuprofen (Motrin, Advil) , naproxen (Aleve) because the combination can increase risk of bleeding Patient has follow up to see orthopedic clinic for left knee contusion. Patient should minimize excessive weight on left knee Patient should discuss with primary care doctor about weight loss strategies Subjective Patient denies problem with mobility. no chest pain. breathing on room air. no abdomen pain. no vomiting. no hematuria or blood in the stools. Physical Exam Constitutional: + obese Eyes: PERRL, conjunctivae normal, anicteric sclerae EOM intact bilaterally ENMT: external ear and nose normal, oropharynx normal Neck: trachea midline, no thyromegaly normal visual inspection Respiratory: normal respiratory effort, lungs clear to auscultation Cardiovascular: RRR, no murmur, no edema Gastrointestinal (Abdomen): normal bowel sounds, soft, nontender, no hepatosplenomegaly Musculoskeletal: Head/Neck/Chest: normocephalic and head atraumatic Neurologic: PERRL, EOMI, accommodation nl, no face palsy, no dysarthria CN's II-XI intact bilaterally Psychiatric: A+Ox3, euthymic affect Results & Data Vital Signs (Past 12 Hours) Vital Signs Temp Pulse Pulse Resp BP Pulse Ox 12/24/18 07:26 36.7 C 61 18 119/84 98 12/24/18 03:46 36.7 C 63 20 133/83 98 12/24/18 00:56 68 12/24/18 00:04 36.9 C 71 18 148/82 H 98 (1) Contusion of knee Encounter type: initial encounter Laterality: left Qualified Code(s): S80.02XA - Contusion of left knee, initial encounter
--- NOTE | 2018-12-24 09:30 | Discharge Summary ---
Date of Service December 24, 2018 Admission HPI Per Admitting Provider This is a 23yo M with a PMH of obesity, sleep apnea and recent left knee injury who presents with shortness of breath and dizziness since yesterday. 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 Was evaluated in ED that night but L knee XR was normal. Instructed to use crutches and follow up with ortho in clinic. Has been significantly less active since injury and has required crutches to ambulate. Was doing errands earlier today when he became more short of breath with associated dizziness and pleuritic chest pain. Family brought him to ED for further evaluation. In ED, patient was found to have tachycardia at 120 and tachypneic at 37. Troponin elevated at 1.020. Chest CTA with extensive acute bilateral pulmonary embolism. There is evidence for mild right ventricular strain. There is mild dilatation of the main pulmonary artery. Denies any personal history of blood clots. Does note that mom developed a blood clot following a knee injury a few years ago. Smokes 1/4 ppd, drinks occasionally. No recent trips or surgeries. No IV drug use. Still having pleuritic chest pain and palpitations. Oxygen saturation 93% on room air. No headache, wheezing, nausea, vomiting, abdominal pain, dysuria, diarrhea or constipation. Admission Exam Per Admitting Provider General Appearance: WD/WN, pbese male, no apparent distress, resting comfortably Head: normocephalic, atraumatic Eyes: normal inspection, PERRL, EOMI ENT: hearing grossly normal, pharynx normal Neck: supple, no JVD, no adenopathy Respiratory/Chest: lungs clear to auscultation. No wheezes, rales or rhonci. No respiratory distress or accessory muscle use Cardiovascular: tachycardic, regular rhythm, no murmur, normal peripheral pulses Abdomen/GI: normal bowel sounds, soft, non-tender to palpation Extremities/Musculoskelatal: Left knee brace. No calf tenderness, normal capillary refill, no pedal edema Neurologic/Psych: alert, normal mood/affect, oriented x 3 Skin: normal color, warm/dry Principal Diagnosis Acute pulmonary embolism with core pulmonale; Deep Vein Thrombosis of Left popliteal vein; elevated troponin from pulmonary embolism, Anticoagulated by anticoagulation therapy; Contusion of left knee; Obesity; AKSHAT (obstructive sleep apnea) Discharge Exam Constitutional + obese Eyes PERRL, conjunctivae normal, anicteric sclerae EOM intact bilaterally ENMT external ear and nose normal, oropharynx normal Neck trachea midline, no thyromegaly normal visual inspection Respiratory normal respiratory effort, lungs clear to auscultation Cardiovascular RRR, no murmur, no edema Gastrointestinal (Abdomen) normal bowel sounds, soft, nontender, no hepatosplenomegaly Musculoskeletal Head/Neck/Chest: normocephalic and head atraumatic Neurologic PERRL, EOMI, accommodation nl, no face palsy, no dysarthria CN's II-XI intact bilaterally Psychiatric A+Ox3, euthymic affect Discharge Data Allergies Allergy/AdvReac Type Severity Reaction Status Date / Time No Known Allergies Allergy Verified 12/16/18 19:24 Consultations 12/17/18 09:21 Consult Pulmonology Routine 12/20/18 16:16 Consult Orthopedic Surgery Routine Ordered Studies 12/16/18 18:41 CT angio chest PE protocol Stat 12/17/18 10:16 US venous doppler LE LT Routine Hospital Course (1) Bilateral pulmonary embolism: Acute pulmonary embolism with core pulmonale Deep Vein Thrombosis of Left popliteal vein Anticoagulated by anticoagulation therapy -Main risk factor: Poor mobility secondary to left knee injury -patient was started on heparin drip and coumadin (NOAC not recommended at this point secondary to patient's elevated BMI and body weight) -was started on coumadin 7.5 mg on 12/19/18 with IV heparin, then coumadin dosed as 10 mg daily with IV heparin from 12/20/18, then 12.5 mg daily with IV heparin from 12/22/18 with 1st therapeutic INR a 2 on 12/23/18 AM and then 2nd therapeutic INR as 2.5 on 12/24/18 AM. stopped heparin IV on 12/24/18 and discharge on coumadin 10 mg daily -Patient to be discharged on coumadin (warfarin) 10 mg daily Prescription sent electronically to [facility] [address] [place] [id number] -Patient should follow up with primary care doctor to get INR level checked (goal level is INR between 2 to 3) 12/29/2018 11:00 AM Provider Danyelle Zendejas DO Department [facility] (2) Elevated troponin: elevated troponin from pulmonary embolism Troponin elevated at 1.020 in setting of acute bilateral PEs with heart strain Troponin decreased to 0.4 Echocardiogram: EF 50 to 55% Grade 1 diastolic dysfunction, right ventricular cavity is enlarged, ventricular systolic function is reduced, there are regional wall motion abnormalities Akinesis of the RV free wall normal apical motion Pulmonary artery pressure of 36 mmHg this is evidence of mild core pulmonale ; patient hemodynamically stable EKG no signs of acute ischemia (3) Contusion of knee: 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 Grimm -No worsening of knee pain or leg pain, -Pain well controlled at this point -Patient has follow up to see orthopedic clinic for left knee contusion. Patient should minimize excessive weight on left knee -patient will need to follow as outpatient primary care doctor on weight loss strategies (4) AKSHAT (obstructive sleep apnea): Evaluated for AKSHAT but has not been given results yet -nocturnal oxygen not used during hospital days - no acute respiratory issues at this time. breathing on room air -AKSHAT (obstructive sleep apnea) evaluations as outpatient 02/18/2019 2:20 PM Provider Nelda Hair MD Department Sleep Disorders, [facility] Smoking Cessation counseling Discharge Diagnosis Acute pulmonary embolism with core pulmonale; Deep Vein Thrombosis of Left popliteal vein; elevated troponin from pulmonary embolism, Anticoagulated by anticoagulation therapy; Contusion of left knee; Obesity; AKSHAT (obstructive sleep apnea) Patient to be discharged on coumadin (warfarin) 10 mg daily Prescription sent electronically to [address] [id number] Patient should follow up with primary care doctor to get INR level checked (goal level is INR between 2 to 3) 12/29/2018 11:00 AM Provider Danyelle Zendejas DO Department [facility] (was started on coumadin 7.5 mg on 12/19/18 with IV heparin, then coumadin dosed as 10 mg daily with IV heparin from 12/20/18, then 12.5 mg daily with IV heparin from 12/22/18 with 1st therapeutic INR a 2 on 12/23/18 AM and then 2nd therapeutic INR as 2.5 on 12/24/18 AM. stopped heparin IV on 12/24/18 and discharge on coumadin 10 mg daily ) [facility] appointment line also notified of scheduling patient to follow with coumadin clinic to monitor INR levels regularly while taking coumadin, patient should avoid NSAIDs (nonsteroidal antiinflammatory drugs) such as diclofenac (Voltaren), ibuprofen (Motrin, Advil) , naproxen (Aleve) because the combination can increase risk of bleeding Patient has follow up to see orthopedic clinic for left knee contusion. Patient should minimize excessive weight on left knee Patient should discuss with primary care doctor about weight loss strategies Total Time Total Time Spent Total Time Spent (In Minutes): 40 minutes Total Time Includes: Examination of the Patient, Discharge Planning, Medication Reconciliation and Communication With Other Providers Discharge Plan Discharge Items Patient Disposition: Home - Self-Care Reason For Visit: BILATERAL PE Discharge Diagnosis: Acute pulmonary embolism with core pulmonale; Deep Vein Thrombosis of Left popliteal vein; elevated troponin from pulmonary embolism, Anticoagulated by anticoagulation therapy; Contusion of left knee; Obesity; AKSHAT (obstructive sleep apnea) Condition: Good Discharge Goals: Improve disease control Activity: Per 'Additional Instructions' section Non-emergency contact: Primary Care Provider Call non-emergency contact if: you have any medication questions Follow-up/Referrals: Price Breaux MD [Primary Care Provider] - Diet: Heart Healthy and Low Fat Addtl Provider Instructions: Patient to be discharged on coumadin (warfarin) 10 mg daily Prescription sent electronically to [facility] [address] [place] [address] Patient should follow up with primary care doctor to get INR level checked (goal level is INR between 2 to 3) 12/29/2018 11:00 AM Provider Danyelle Zendejas DO [facility] (was started on coumadin 7.5 mg on 12/19/18 with IV heparin, then coumadin dosed as 10 mg daily with IV heparin from 12/20/18, then 12.5 mg daily with IV heparin from 12/22/18 with 1st therapeutic INR a 2 on 12/23/18 AM and then 2nd therapeutic INR as 2.5 on 12/24/18 AM. stopped heparin IV on 12/24/18 and discharge on coumadin 10 mg daily ) [facility] appointment line also notified of scheduling patient to follow with coumadin clinic to monitor INR levels regularly while taking coumadin, patient should avoid NSAIDs (nonsteroidal antiinflammatory drugs) such as diclofenac (Voltaren), ibuprofen (Motrin, Advil) , naproxen (Aleve) because the combination can increase risk of bleeding Patient has follow up to see orthopedic clinic for left knee contusion. Patient should minimize excessive weight on left knee Patient should discuss with primary care doctor about weight loss strategies AKSHAT (obstructive sleep apnea) evaluation 02/18/2019 2:20 PM Provider Nelda Hair MD Department Sleep Disorders, [facility] Prescriptions: New warfarin 10 mg tablet 10 mg PO DAILY@1600 30 Days Qty: 30 RF: 0 Continued fexofenadine-pseudoephedrine [Kayleen-D 12 Hour] 60-120 mg Tablet Extended Release 12 Hr 60 tab PO QAM RF: 0 fluticasone propionate [Flonase Allergy Relief] 50 mcg/actuation [place],Suspension 2 spray intranasal DAILY PRN (Reason: Allergy Symptoms) RF: 0 tramadol 50 mg tablet 50 mg PO Q8H PRN (Reason: Pain) RF: 0 omeprazole 20 mg capsule,delayed release(DR/EC) 20 mg PO DAILY PRN (Reason: Acid Reflux) RF: 0 Discontinued diclofenac sodium 75 mg tablet,delayed release (DR/EC) 75 mg PO BID RF: 0 Stand-Alone Forms: [facility] Discharge Orders: Discharge Order (Routine); Ordered 12/24/18 Ordered By: Esdras Kelly Admission Data Admit Date/Time: 12/16/18 21:26 Attending Provider: Esdras Kelly Admit Provider: Lionel Ford Primary Care Provider: Price Breaux Other Providers: Elmer Yuen ; Reno Davidson Service: Telemetry
[2018-12-24 09:51] VITALS: PULSE 77
== END 2018-12-24 11:49 | disposition home or self-care (01) | DRG 299 ==
LOC: ED 18:12 → 2S 21:26 → SUATTDRO 21:26 → 2S 21:58

== ENCOUNTER 2025-02-21 19:54 | Observation (INO) ==
[2025-02-21 20:32] LABS: Hematocrit (blood only) 44.4 % (42.0-52.0); Hemoglobin 15.8 g/dl (14.0-18.0); Immature Granulocytes # (auto) 0.01 K/uL (0.01-0.20); Immature Granulocytes % (auto) 0.2 %; Mean Corpuscular Hemoglobin 29.9 pg (25.0-34.0); Mean Corpuscular Volume 83.9 fL (80.0-100.0); Platelet Count 240 K/uL (130-400); RDW Standard Deviation 35.9 fL (36.4-46.3); Red Blood Count 5.29 M/uL (4.70-6.10); White Blood Count 4.61 K/ul (4.8-10.8)
[2025-02-21 20:49] LABS: Alanine Aminotransferase 34.0 U/L (7-52); Albumin Globulin Ratio 1.3 (0.9-2); Alkaline Phosphatase 47.0 U/L (34-104); Anion Gap 9.0 (3-11); Bilirubin,Total 0.9 mg/dl (0.2-1.0); Blood Urea Nitrogen 17.0 mg/dl (6-23); Calcium 9.5 mg/dl (8.6-10.3); Carbon Dioxide 29.0 mmol/L (21-32); Chloride 103.0 mmol/L (98-107); Creatinine Clr Calc Pharmacy 78.8 ml/min; Globulin 3.4 gm/dl (2.5-4.0); Glucose 94.0 mg/dl (70-99(Fasting)); Potassium 4.1 mmol/L (3.5-5.1); Sodium 141.0 mmol/L (136-145); Total Protein 7.7 gm/dl (6.0-8.3)
[2025-02-21 20:59] LABS: INR 1.0 (0.9-1.1); Partial Thromboplastin Time 25 Seconds (21-31); Prothrombin Time 10.7 Seconds (9.0-12.0)
--- NOTE | 2025-02-21 21:02 | XRay Report ---
Exam(s): XR CXR 1 VIEW EXAM: XR Chest, 1 View CLINICAL HISTORY: Reason for exam: Chest pain, nonspecific. TECHNIQUE: Frontal view of the chest. COMPARISON: 02/16/2025 FINDINGS: Lungs: No consolidation. No overt edema. Pleural space: No pleural effusion. No pneumothorax. Heart: Unremarkable. No cardiomegaly. IMPRESSION: No acute cardiopulmonary abnormality. Electronically signed by: Brad Douglas MD 02/21/25 21:01 PM
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
[2025-02-21] MEDS: FAMOTIDINE 20MG IV PUSH 20 MG/5 ML SYR IV STA (23:34)
[2025-02-21] MEDS: SODIUM CHLORIDE 0.9% 1,000 ML IV ONE (23:34)
[2025-02-22] MEDS: NITROGLYCERIN SL 0.4 MG/TAB TAB SL PRN (00:36)
[2025-02-22 00:58] LABS: Anion Gap 4.0 (3-11); Blood Urea Nitrogen 23.0 mg/dl (6-23); Calcium 8.9 mg/dl (8.6-10.3); Carbon Dioxide 27.0 mmol/L (21-32); Chloride 106.0 mmol/L (98-107); Creatinine Clr Calc Pharmacy 95.7 ml/min; Glucose 109.0 mg/dl (70-99(Fasting)); Potassium 3.9 mmol/L (3.5-5.1); Sodium 137.0 mmol/L (136-145)
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
[2025-02-22] MEDS: LACTATED RINGER'S 1,000 ML IV ONE (01:36)
[2025-02-22] MEDS ORDERED: ACETAMINOPHEN 325 MG TAB PO PRN (01:55)
[2025-02-22] MEDS ORDERED: LORazepam 0.5 MG TAB PO PRN (01:58)
[2025-02-22] MEDS ORDERED: PROMETHAZINE 12.5 MG/50.5 ML BAG IV PRN (01:58)
[2025-02-22] MEDS ORDERED: HYDROmorphone INJ 1 MG/ML SYRINGE IV PRN (01:58)
[2025-02-22 04:37] LABS: Chlamydia pneumoniae PCR Not Detected (NotDetected); Coronavirus 229E PCR Not Detected (NotDetected); Coronavirus CoV-2 (COVID19)PCR Not Detected (NotDetected); Coronavirus HKU1 PCR Not Detected (NotDetected); Coronavirus NL63 PCR Not Detected (NotDetected); Coronavirus OC43PCR Not Detected (NotDetected); Human Metapneumovirus PCR Not Detected (NotDetected); Parainfluenza Virus 1 PCR Not Detected (NotDetected); Parainfluenza Virus 2 PCR Not Detected (NotDetected); Parainfluenza Virus 3 PCR Not Detected (NotDetected); Parainfluenza Virus 4 PCR Not Detected (NotDetected); Respiratory Syncytial VirusPCR Not Detected (NotDetected); Rhinovirus/Enterovirus PCR Not Detected (NotDetected)
[2025-02-22 04:41] LABS: Hematocrit (blood only) 41.9 % (42.0-52.0); Hemoglobin 14.1 g/dl (14.0-18.0); Immature Granulocytes # (auto) 0.02 K/uL (0.01-0.20); Immature Granulocytes % (auto) 0.4 %; Mean Corpuscular Hemoglobin 28.7 pg (25.0-34.0); Mean Corpuscular Volume 85.2 fL (80.0-100.0); Platelet Count 209 K/uL (130-400); RDW Standard Deviation 37.7 fL (36.4-46.3); Red Blood Count 4.92 M/uL (4.70-6.10); White Blood Count 5.22 K/ul (4.8-10.8)
[2025-02-22 04:55] LABS: Anion Gap 5.0 (3-11); Blood Urea Nitrogen 23.0 mg/dl (6-23); Calcium 8.7 mg/dl (8.6-10.3); Carbon Dioxide 25.0 mmol/L (21-32); Chloride 107.0 mmol/L (98-107); Cholesterol 136.0 mg/dl (0-200); Creatinine Clr Calc Pharmacy 108.8 ml/min; Glucose 135.0 mg/dl (70-99(Fasting)); HDL Cholesterol 55.0 mg/dl; Potassium 4.0 mmol/L (3.5-5.1); Sodium 137.0 mmol/L (136-145); Triglycerides 100.0 mg/dl (0-150)
[2025-02-22 06:06] VITALS: TEMP 97.7
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
[2025-02-22] MEDS: HEPARIN SOD 5,000 UNIT/0.5 ML VIAL SQ SCH (09:27)
[2025-02-22 09:28] VITALS: PULSE 59; RESP 16; O2SAT 98
--- NOTE | 2025-02-22 09:51 | Electrocardiogram Report ---
Test Reason : Blood Pressure : */* mmHG Vent. Rate : 71 BPM Atrial Rate : 71 BPM P-R Int : 166 ms QRS Dur : 90 ms QT Int : 384 ms P-R-T Axes : 56 -3 6 degrees QTcB Int : 417 ms Normal sinus rhythm Normal ECG When compared with ECG of 16-Feb-2025 11:04, Premature ventricular complexes are no longer Present Inverted T waves have replaced nonspecific T wave abnormality in Inferior leads Confirmed by Antoine Russo ([id number]) on 02/22/2025 9:51:19 AM Referred By: Price Breaux Confirmed By: Antoine Russo
[2025-02-22] MEDS ORDERED: IBUPROFEN 800 MG TAB PO SCH (12:00)
[2025-02-22] MEDS: DICLOFENAC SODIUM 75 MG TABCR PO ONE (12:23)
--- NOTE | 2025-02-22 14:22 | Discharge Summary ---
Discharge Summary Date of Service February 22, 2025 Principal Dx & Hospital Course #1 = Principal Diagnosis (1) Musculoskeletal chest pain: (2) Acute costochondritis: (3) Obesity: (4) AKSHAT (obstructive sleep apnea): (5) Prediabetes: Plan Patient 29-year-old gentleman has been in the emergency department a few times over the past week with chest pain. He has had extensive workup to date including multiple blood tests and imaging studies. Presented to the emergency room again with chest pain. Patient was observed in a monitored setting. There was no significant arrhythmias. Troponins were negative times all sets. Car diology consultation was obtained. They evaluated the patient and reviewed his echocardiogram. Echocardiogram showed a normal ejection fraction of 55 to 60%. No significant valvular disease. No significant pulmonary hypertension. Cardiology recommended no further cardiac evaluations here in the hospital. On further examination, the patient was exquisitely tender over the costochondral junctions bilaterally at the base of the sternum. This reproduced his chest tightness exactly. 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 He had been limited with lifting at work due to his knee issues. Patient was given a trial of Voltaren and tramadol. This seemed to improve some of his symptoms and decreased his pain radiating. I spent a significant amount of time with the patient explaining to him the etiology of his pain and his likely musculoskeletal. Also reviewed all of his testing he has had over the last week that ruled out infection, blood clots, heart muscle damage. He will continue on the Voltaren and tramadol as needed. He was given Protonix for GI protection as well. Patient has just recently completed a treatment for H. pylori infection. I did review his previous EGD which did not show any significant ulcerations gastritis or esophagitis. He will follow-up with his outpatient providers. Notes For Next Care Provider May need to continue light duty at work Continue to manage chronic medical issues Medication Changes From Visit Voltaren Tramadol Protonix Admission HPI Per Admitting Provider History obtained from patient and records. Medical history significant for PE DVT with cor pulmonale status post Coumadin, hypertension, nocturnal hypoxemia/AKSHAT, prediabetes, morbid obesity, concussion as per records, anxiety/mood disorder, ongoing vape use. Last confinement 2018 for acute PE DVT with cor pulmonale attributed to poor mobility secondary to left knee injury. Patient completed Coumadin course. Last week, patient experienced substernal pain associated with dry cough symptoms. Symptoms started upon bending down. Patient seen at the ER. CT chest negative for PE. Patient prescribed Protonix for possible GERD. Patient seen on follow-up visit at PCP's office 2 days after ER visit. Outpatient cardiology referral for possible stress echo given patient risk factors for ischemic heart disease. Tolerable chest pain until last night when achy chest pain radiated to left arm. No cough or SOB. No improvement with Pepcid and nitroglycerin administration at the ER. 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 Lungs: Clear to auscultation, decreased, no wheezes rales or rhonchi CV: S1-S2, regular Abdomen: Soft, nontender, nondistended Extremities: No significant edema Musculoskeletal: Significant tenderness to palpation at the costochondral junctions of the lower sternum bilaterally as well as the xiphoid process, this reproduces patient's chest pains/tightness exactly. Neuro: No focal deficits Psych: Cooperative, normal mood Updated Medication List Medication Instructions Recorded Confirmed Type diclofenac sodium 75 mg 75 mg PO BID PRN pain #20 tabs 02/22/25 Rx tablet,delayed release pantoprazole 40 mg tablet,delayed 40 mg PO DAILY 02/22/25 Rx release INDIGESTION/HEARTBURN #30 tabs tramadol 75 mg tablet 75 mg PO Q8H PRN pain #14 tabs 02/22/25 Rx Hospital Stay Data Consultations 02/21/25 23:28 ED Decision to Admit Stat 02/22/25 06:04 Consult Cardiology Routine Diagnostic Imagining Performed Reviewed imaging, laboratory and diagnostic studies. Pertinent findings as below. Echocardiogram showed normal ejection fraction no valvular disease, normal pulmonary artery pressure. I refer to full report for details Personally reviewed EKG, no acute ST-T wave changes Respiratory viral panel negative CBC stable Electrolytes within normal range Creatinine 1.39 Glucose 135 Troponins within normal range x 3 sets Pending Results Patient Have Any Pending Studies at Discharge: No Discharge Instructions Given to Patient (Per Discharging Provider) I suspect your chest discomfort is from inflammation of the cartilage that attaches your ribs to your sternum. The main treatment for this is rest. In addition to the medications you can try heat or ice whichever would make it feel better. Over the last week you have had extensive evaluations of your heart and lungs which, fortunately, did not show any acute pathology, illness or injury. Total Time Total Time Spent Total Time Spent (In Minutes): 36
[2025-02-22 14:35] VITALS: BP 138/92
== END 2025-02-22 14:31 | disposition home or self-care (01) ==
LOC: ED 19:54 → EDINP 19:54
DX: F41.9 Anxiety disorder, unspecified; Z87.820 Personal history of traumatic brain injury; F17.290 Nicotine dependence, other tobacco product, uncomplicated; E66.01 Morbid (severe) obesity due to excess calories; Z68.42 Body mass index [BMI] 45.0-49.9, adult; Z79.899 Other long term (current) drug therapy; R73.03 Prediabetes; I10 Essential (primary) hypertension; Z87.828 Personal history of other (healed) physical injury and trauma; M94.0 Chondrocostal junction syndrome [Tietze]; Z86.711 Personal history of pulmonary embolism; G47.33 Obstructive sleep apnea (adult) (pediatric)